=== PATIENT | male | born 1965 | race African-American/Black ===

== ENCOUNTER 2016-06-17 15:33 | Inpatient (IN) | payer MEDICARE, OTHER ==
--- NOTE | ~2016-06-17 | OP ---
Record Of Operation [facility] [address] [place]. [address] NAME: WENDY ENNIS : 61 STATUS : ADM IN [facility]#: [id number] AGE: 51 ADM/REG DATE : 06/17/16 MR#: [id number] REPORT SERV DATE: 06/23/16 DICTATED BY: ISRAEL OLEARY DATE: 06/23/16 REPORT STATUS : Draft TRANSCRIBED BY: MODL DATE: 06/23/16 DATE OF PROCEDURE: 06/23/2016 PROCEDURE INDICATION: Atypical flutter. PROCEDURE DESCRIPTION: All questions were answered and informed consent was obtained. Anesthesia administered sedation, without complication. Transesophageal probe was then inserted without any issue. Salient echocardiographic windows were obtained, with particular attention to the left atrial appendage. Subsequently, the patient was shocked to 200 joules x1, with successful conversion to sinus rhythm in the 80s. The patient tolerated the procedure well without any complications. ECHOCARDIOGRAPHIC FINDINGS: 1. Moderately decreased left ventricular systolic function, with an estimated ejection fraction of 35% to 40%. 2. Moderately enlarged right ventricle with moderately decreased systolic function. 3. Biatrial enlargement. 4. No thrombus in the left atrial appendage at the time of the study. 5. Color Doppler demonstrates severe tricuspid and mitral regurgitation. 6. Failure of the tricuspid leaflets to coapt secondary to annular dilatation (RV and RA enlargement). 7. The mitral valve is not well seen but appears to be thickened, and possibly with mild coaptation. Pulmonary systolic vein flow reversal was noted, in keeping with severe MR. 8. Small circumferential pericardial effusion is noted. 9. No evidence of PFO or ASD on color Doppler assessment of the interatrial septum. VR/BONNIE Israel Oleary MD / [id number] CC: Jono Valentine M.D.
--- NOTE | ~2016-06-17 | CN ---
Consultation Report [facility] [address] [facility] [place]. [address] NAME: WENDY GALAVIZ : 61 STATUS : ADM IN [facility]#: [id number] AGE: 51 ADM/REG DATE : 06/17/16 MR#: [id number] REPORT SERV DATE: 06/18/16 DICTATED BY: JOHN FERRARI DATE: 06/18/16 REPORT STATUS : Draft TRANSCRIBED BY: MODL DATE: 06/18/16 INPATIENT CONSULTATION DATE OF CONSULTATION: 06/18/2016 REASON FOR CONSULTATION: Ascites and question need for paracentesis. HISTORY OF PRESENT ILLNESS: Mr. Galaviz is a very pleasant 51-year-old male with past medical history most significant for end-stage renal disease, on hemodialysis three days a week as well as congestive heart failure and atrial fibrillation, who was admitted to the hospital on the day prior to this consultation for complaints of chronic cough and shortness of breath and was found to be in rapid atrial fibrillation. The patient was also complaining of chest pain at that time and has had negative troponins to this point. The patient has history of recurrent episodes of ascites. The patient states that, he has had recurrent problems for some time with a recent paracentesis for fluid removal approximately one week ago on 06/09/2016. No labs were sent on the fluid, but 3 L of ascites fluid removed. Review of the patient's laboratory work for prior paracentesis revealed fluid with a SAAG of 1.1 with a high albumin and high protein consistent with cardiac ascites. Currently, the patient states that his abdomen feels full, but is not having any pain. Examination of the patient's abdomen reveals a soft abdomen with only mild distention. No nausea or vomiting per the patient's report. No food intolerance. REVIEW OF SYSTEMS: All systems reviewed and were negative aside from what was mentioned in the history of present illness. PAST MEDICAL HISTORY: 1. End-stage renal disease with hemodialysis on Thursday, Thursday, and Thursday. 2. Hypertension. 3. Nonischemic cardiomyopathy. 4. Paroxysmal atrial fibrillation, on Coumadin. 5. Recurrent ascites with recent paracentesis one week ago. 6. History of recurrent pleural effusions, with prior VATS procedure in 2014. FAMILY HISTORY: The patient denies any family history of GI related malignancy or liver disease. SOCIAL HISTORY: The patient denies tobacco, alcohol, or illicit drug use. ALLERGIES: THE PATIENT HAS ALLERGIES TO: 1. VANCOMYCIN. 2. IODINATED CONTRAST MEDIA. Consultation Report [address] [place]. [address] NAME: WENDY GALAVIZ : 61 STATUS : ADM IN PAT#: [id number] AGE: 51 ADM/REG DATE : 06/17/16 MR#: [id number] REPORT SERV DATE: 06/18/16 DICTATED BY: JOHN FERRARI DATE: 06/18/16 REPORT STATUS : Draft TRANSCRIBED BY: BONNIE DATE: 06/18/16 3. PENICILLINS. 4. SHELLFISH. 5. TOMATOES. 6. STRAWBERRIES. 7. MUSHROOMS. OUTPATIENT MEDICATIONS: 1. Breo Ellipta. 2. Albuterol. 3. Amlodipine. 4. Elavil. 5. Coumadin. PHYSICAL EXAMINATION: VITAL SIGNS: Most recent vital signs include a temperature of 98.1, pulse of 90, blood pressure is 98/66, saturating 93% on room air. GENERAL INSPECTION: Reveals a middle-aged male, lying in bed, in no apparent distress. HEENT: Head is normocephalic, atraumatic with normal inspection of the oral mucosa. Sclerae nonicteric. Pupils are equal and round. HEART: Rate is irregular with normal S1 and S2. LUNGS: Sounds clear to auscultation from the anterior aspect. ABDOMEN: Soft, nontender with mild distention. There is a fluid wave that is palpable. No masses were appreciated. EXTREMITIES: The patient has no cyanosis, clubbing. No jaundice or rash. NEURO: No gross motor deficits. He is alert and oriented. Mood and affect are appropriate. Judgment appears to be intact. LABORATORY DATA: Most recent laboratory results include a comprehensive metabolic panel as most remarkable only for creatinine of 6.33. Electrolytes were unremarkable. Total bilirubin was elevated at 3.9, alkaline phosphatase 197, transaminases were normal however. PTT was elevated at 88. INR was 1.6. Most recent CBC showed a white count of 7.7, hemoglobin of 14.6, and a platelet count of 223,000. The patient has no pertinent imaging to review. ASSESSMENT AND PLAN: Mr. Galaviz is a very pleasant 51-year-old male with past medical history significant for end-stage renal disease as well as congestive heart failure and atrial fibrillation, who was admitted with atrial fibrillation with rapid ventricular response, shortness of breath, and chest pain. The patient does not have significant amount of ascites, the etiology of which is most likely cardiac in nature given the fluid analysis from previously, however the patient does have elevated LFTs at this time, which suggest a cholestatic pattern. Question if this is from hepatic congestion from the patient's heart failure/rapid atrial fibrillation, which may also be exacerbating the development of Consultation Report [address] [address] NAME: WENDY GALAVIZ : 61 STATUS : ADM IN PAT#: [id number] AGE: 51 ADM/REG DATE : 06/17/16 MR#: [id number] REPORT SERV DATE: 06/18/16 DICTATED BY: JOHN FERRARI DATE: 06/18/16 REPORT STATUS : Draft TRANSCRIBED BY: MODL DATE: 06/18/16 ascites. For the patient's ascites, he will require ongoing fluid balancing during dialysis as diuretic therapy is unlikely to be of significant benefit for him with his significantly decreased urine production. However, intermittent paracenteses can be performed as needed, when the patient becomes overtly distended. The patient does not have significant distention at this point in time. I would not recommend paracentesis today, however would recommend an ultrasound of the patient's liver to assure there is no suggestion of biliary obstruction. The patient does have an elevated bilirubin and alkaline phosphatase. Again, this could be secondary to hepatic congestion from the patient's heart disease, however would rule out an obstructive process. 1. Would obtain right upper quadrant ultrasound for assessment of the patient's liver and bile ducts today. 2. Would check a hepatitis panel. 3. No need for paracentesis at this time. Thank you very much for this interesting consult and allowing us to participate in Mr. Galaviz's care. Please call with questions or concerns. WMC/MODL John Ferrari MD / [id number] CC: Jono Valentine M.D.
--- NOTE | ~2016-06-17 | CN ---
Consultation Report [facility] [address] [place]. [address] NAME: WENDY ENNIS : 61 STATUS : ADM IN PAT#: [id number] AGE: 51 ADM/REG DATE : 06/17/16 MR#: [id number] REPORT SERV DATE: 06/18/16 DICTATED BY: RITU WONG DATE: 06/18/16 REPORT STATUS : Draft TRANSCRIBED BY: BONNIE DATE: 06/18/16 CARDIOLOGY CONSULTATION DATE OF CONSULTATION: REFERRING REASON: Atrial fibrillation with rapid ventricular response and dry cough. HISTORY OF PRESENT ILLNESS: This is a 51-year-old gentleman with a complex past medical history and unfortunately also poor medical compliance, well known to me from [facility]. He has several recent hospitalizations at [facility]. He has end-stage renal disease, on hemodialysis. He has required frequent paracentesis for ascites, most recent one was on 06/09/2016, 3 L fluid was removed. He also has a history of right pleural VATS by Dr. Quick in 2014 for recurrent pleural effusion. He has a nonischemic cardiomyopathy with EF 45% to 50%. He has several echocardiograms, more recent one was transesophageal echo in 04/2016 with EF 50%. He has history of atrial flutter ablation in [address] Gonsales and then paroxysmal atrial fibrillation since then. Unfortunately, he has very poor medical compliance, and he stopped all the medications including anticoagulation for a couple of years. When I saw him in April, he was not on anticoagulation. Anticoagulation has been restarted, and he underwent REY-guided cardioversion. During the transesophageal echo done by Dr. Pineda, the patient had a respiratory arrest and required intubation. Subsequently, he underwent successful REY- guided cardioversion by Dr. Giron during the same hospitalization in April to sinus rhythm, he was started on intravenous amiodarone and despite these measures, he went shortly after to atrial fibrillation. I saw him in the office on 05/08. At that time, he has a subtherapeutic INR of 1.3 and was in atrial fibrillation, but it was rate controlled. He was on p.o. amiodarone and Toprol. He is a very poor historian. He has been complaining for last couple of weeks of a dry cough and that he is not sure what is happening with the medications, including amiodarone and Toprol. He reportedly has been seen by human resources operations specialist in the outpatient office yesterday or the day before yesterday and was found to have atrial fibrillation with rapid ventricular response of more than 100 and was sent to emergency room and admitted to Nephrology Service. He was started on Cardizem drip yesterday, and the Coumadin has been restarted. Of note, the patient has been offered to have INR followed at the Cou[facility]in [facility] at [facility], but he declined it. He wanted to have INR checked during the hemodialysis. He denies any significant palpitations. He has some episodes of chills, but no fevers. His blood pressure during hemodialysis is unknown to me. He has also intermittent, poorly defined, nonexertional chest discomfort. Of note, he has some mild troponin leak, 0.07 to 0.09, which is chronic, which was during the last hospitalization in April. His coronary arteriogram, however, has not revealed any obstructive disease. He has some multiple dry coughing spells now during the examination. He is not sure what is happening with the amiodarone or anticoagulation. He is a very poor historian. REVIEW OF SYSTEMS: Consultation Report [address] [address] NAME: WENDY ENNIS : 61 STATUS : ADM IN [facility]#: [id number] AGE: 51 ADM/REG DATE : 06/17/16 MR#: [id number] REPORT SERV DATE: 06/18/16 DICTATED BY: RITU WONG DATE: 06/18/16 REPORT STATUS : Draft TRANSCRIBED BY: MODTiana DATE: 06/18/16 The rest of review of systems is negative. PAST MEDICAL HISTORY: 1. End-stage renal disease, on hemodialysis. 2. Recurrent ascites, requiring paracentesis, most recent one on 06/09/2016. 3. Recurrent pleural effusion with history of right VATS with small right pleural effusion now. 4. Nonischemic cardiomyopathy with EF 45% to 50%, most recent echo in 04/2016 with EF 50%. 5. Mild RV enlargement with moderate TR and mild left atrial enlargement by echocardiogram. 6. Mild troponin leak, chronic. 7. No obstructive CAD by arteriogram in 04/2016. 8. Longstanding hypertension. 9. History of atrial flutter ablation by Dr. Gonsales in 2013. 10.Status post REY-guided cardioversion in 2013 and 04/2016, but the patient went back to atrial fibrillation despite amiodarone. 11.History of respiratory arrest during transesophageal echo in 04/2016. 12.History of right cheek MRSA in 04/2016. 13.Chronic cough with some recent worsening. 14.History of negative nuclear cardiac stress test for ischemia in 2014. 15.Poor medical compliance. ALLERGIES: PENICILLIN. SOCIAL HISTORY: The patient lives independently. He does not work. He is on dialysis. Denies smoking or drinking alcohol. FAMILY HISTORY: Negative for sudden cardiac or premature coronary artery disease in the family. HOME MEDICATIONS: Prior to admission, he was on amiodarone 200 mg once a day, but on admission medications, it is not listed; amlodipine 5 mg once a day; aspirin 81 mg once a day; clonidine 0.3 mg every 24 hours; Lasix 60 mg a day; Jantoven; during the last visit on 05/08, we increased dose of Coumadin to 10 mg once a day, the patient is not sure how much he was taking at home and it is not listed on admission medications; Toprol-XL 25 mg once a day, it is not again listed. He is now on Cardizem drip, and Coumadin has been restarted. PHYSICAL EXAMINATION: GEN: No acute distress, chronically ill-looking gentleman, who looks older than his biological age with some multiple dry coughing spells during the examination. HEENT: Pupils reactive to light and accommodation. Moist mucosa membrane. NECK: No JVD. Normal carotid upstroke. No carotid bruits. LUNGS: Decreased breath sounds bibasilarly with some decreased breath sounds particularly at the right base. Occasional wheezing, but no crackles. COR: Normal S1, S2. No S3 or S4. No significant rub or murmurs. Consultation Report [address] [place]. [address] NAME: WENDY ENNIS : 61 STATUS : ADM IN [facility]#: [id number] AGE: 51 ADM/REG DATE : 06/17/16 MR#: [id number] REPORT SERV DATE: 06/18/16 DICTATED BY: RITU WONG DATE: 06/18/16 REPORT STATUS : Draft TRANSCRIBED BY: BONNIE DATE: 06/18/16 ABDOMEN: Distended and nontender. EXT: Lower extremity, decreased pedal pulses bilaterally, but no edema. SKIN: Warm with normal turgor. MS: No kyphosis. NEURO/PSY: Alert and oriented. Nonfocal. VITAL SIGNS: The blood pressure is 98/66. LABORATORY DATA: INR 1.5. Creatinine 8.0, BUN 29. Chest x-ray shows some borderline cardiomegaly with right pleural effusion. Troponin 0.07, 0.07. CBC, within normal limits. On monitor, he is in atrial fibrillation in the 90s. ASSESSMENT AND PLAN: 1. Worsening chronic dry cough of unclear etiology with recent chills. 2. Persistent atrial fibrillation, status post REY-guided cardioversion in 04/2016. 3. Nonischemic cardiomyopathy with EF 45% to 50%. 4. Chronic mild troponin leak with no evidence of any significant CAD by arteriogram in 04/2016. 5. End-stage renal disease, on hemodialysis. 6. Problem with medical compliance. The patient has several medical problems and unfortunately, his medical compliance is very poor. Definity, he will need to be on chronic anticoagulation. While he repeatedly strongly declined to have INR checked at [facility] and wants to have it done in dialysis, we will need to defer this to our nephrology colleagues. Pharmacy should manage his Coumadin while in the hospital. While his blood pressure has been low, we will restart him on intravenous amiodarone and use IV Cardizem only p.r.n. While he is not on admission on amiodarone is not clear to me, the patient does not have any explanation for it. He is not a good candidate for another REY-guided cardioversion while he had a respiratory arrest just two months ago. He will rather need to be followed by human resources operations specialist for his worsening dry cough. He even does not remember whom he sees in the outpatient setting from Pulmonary. His INR now is clearly subtherapeutic. His mild troponin leak likely does not represent acute coronary syndrome while he has chronic troponin leak with recent coronary arteriogram. We will follow the patient with you. Our goal will be rate control. PHOEBE/BONNIE Ritu Wong M.D. / [id number] CC: Jono Valentine M.D.
--- NOTE | ~2016-06-17 | DS ---
Discharge Summary [facility] [address] [facility] [place]. [address] NAME: WENDY ENNIS : 61 STATUS : DIS IN PAT#: [id number] AGE: 51 ADM/REG DATE : 06/17/16 MR#: [id number] REPORT SERV DATE: 06/25/16 DICTATED BY: JR SKY JR DATE: 06/24/16 REPORT STATUS : Draft TRANSCRIBED BY: BONNIE DATE: 06/24/16 ADMISSION DATE: 06/17/2016 DISCHARGE DATE: 06/24/2016 MOTOR TRANSPORT INSPECTOR: Chidi Waldrop M.D. REASON FOR ADMISSION: Atrial fibrillation with rapid ventricular response. HISTORY: The patient was seen on a scheduled office visit the day of admission, by his plastic card grader cardroom, he was identified to be in atrial fibrillation with rapid ventricular response. He was admitted, underwent cardioversion on two occasions, with subsequent stabilization of the heart rate in a sinus rhythm. He was treated with warfarin, INR is therapeutic, warfarin has been managed by the hospital pharmacist, and it is stated that he has had warfarin re-education during this hospitalization. He underwent his usual dialysis sessions without incident. There was no indication for adjustment of his dry weight, and hence this number is not changed as he is leaving the hospital. On day of dismissal, he denies any new complaints. He acknowledges that he understands how to use his warfarin and that he is aware of what foods may interfere with warfarin. I have educated him to always ask if a new prescription medication can interfere with his warfarin metabolism. PHYSICAL EXAMINATION: VITAL SIGNS: At dismissal, the temperature is 98.7, heart rate 84, respirations 16, BP 100/68. GENERAL: He is awake, alert, and oriented. SKIN: Warm and dry. There is no diaphoresis or cyanosis. NECK: There is no jugular venous distention of the neck. LUNGS: Clear without increased work of breathing. HEART: Tones are regular without rub or gallop. ABDOMEN: Nontender. EXTREMITIES: Without edema. LABORATORY DATA: White count is 5000, hemoglobin is 13, platelets 162. INR is 2.0. PT is 22. Sodium is 139, potassium 4.3, chloride 102, CO2 is 22, BUN is 42, creatinine 8.6, nonfasting glucose is 115, calcium is 8.8, magnesium is 2.2, albumin 3.0. Chest x-ray on day of admission showed stable cardiomegaly with left atrial enlargement and enlargement of the pulmonary artery centrally. Small nonspecific pleural effusion on the right, otherwise unremarkable. ADDITIONAL DISMISSAL: Improved. FOLLOWUP: With art sales consultant at [facility] as directed by the art sales consultant. Followup at [facility] for therapeutic warfarin monitoring. Follow with his plastic card grader cardroom, he will need to call for an appointment. Follow up at [facility] tomorrow on usual schedule with no Discharge Summary [address] [place]. [address] NAME: WENDY ENNIS : 61 STATUS : DIS IN PAT#: [id number] AGE: 51 ADM/REG DATE : 06/17/16 MR#: [id number] REPORT SERV DATE: 06/25/16 DICTATED BY: JR SKY JR DATE: 06/24/16 REPORT STATUS : Draft TRANSCRIBED BY: BONNIE DATE: 06/24/16 adjustment in his dry weight. DF/MODL Jr Sky Jr, M.D. / [id number] CC: Meenu Raines Jr, M.D. [facility]
--- NOTE | ~2016-06-17 | CN ---
Consultation Report [facility] [address] [place]. [address] NAME: WENDY GALAVIZ : 61 STATUS : ADM IN PAT#: [id number] AGE: 51 ADM/REG DATE : 06/17/16 MR#: [id number] REPORT SERV DATE: 06/18/16 DICTATED BY: RODO PATE DATE: 06/18/16 REPORT STATUS : Draft TRANSCRIBED BY: BONNIE DATE: 06/18/16 DATE OF CONSULTATION: 06/18/2016 CHIEF COMPLAINT: Cough and right-sided pleural effusion. HISTORY OF PRESENT ILLNESS: Mr. Wendy Galaviz is a 51-year-old male with a past medical history significant for end-stage renal disease on dialysis Thursday, Thursday, Thursday; chronic cough; atrial fibrillation; and previous pleural effusion; who presents to [facility] with complaints of symptoms related to arrhythmia. It should be noted that the patient was hospitalized as recently as two months ago when he underwent cardioversion. It should be noted that during this hospitalization he did have respiratory arrest and required intubation. Mr. Galaviz is very familiar to our Pulmonary Service and has been seen by several members of our Pulmonary team. He has an ongoing workup for his chronic cough, unfortunately he has not presented to our office for continuing workup. He does not usually require supplemental oxygen. He is on a pulmonary regimen of Singulair and Flovent. He has recently been taking Breo Ellipta. He describes himself as a never smoker. He largely denies symptomatology related to obstructive sleep apnea. He describes his exercise tolerance as being somewhat limited. That being said, he is able to walk approximately half a block before experiencing some degree of shortness of breath. Again, the patient was seen in April of this year by our pulmonary team. Apparently, he was undergoing a cardioversion, had a vagal response which induced respiratory failure. The patient was briefly intubated. He did improve and did eventually transition home. More recently, he has had worsening issues with heart rate as well as persistent dry cough which prompted his presentation to [facility] Emergency Room. Upon arrival, he was found to be in atrial fibrillation with rapid ventricular response. During this time, he has also had ascites for which he underwent paracentesis. Approximately 3 L of fluid was removed from his abdomen. He has had recent chest x-ray which demonstrates a very small right-sided pleural effusion. For the aforementioned reasons, he has been referred to the Pulmonary Service for further assessment. Mr. Galaviz's main pulmonary complaint is a dry nonproductive cough. He is on minimal oxygen. He denies any wheezing. The patient does have an extensive cardiac history and is followed by Dr. Waldrop for these concerns. He currently denies any murmurs, angina, or palpitations. In regard to constitutional symptoms, he currently denies fever, chills, nausea, vomiting, chest pain, abdominal pain, or edema. PAST MEDICAL HISTORY: 1. End-stage renal disease. 2. Atrial fibrillation. Consultation Report [address] [address] NAME: WENDY GALAVIZ : 61 STATUS : ADM IN [facility]#: [id number] AGE: 51 ADM/REG DATE : 06/17/16 MR#: [id number] REPORT SERV DATE: 06/18/16 DICTATED BY: RODO PATE DATE: 06/18/16 REPORT STATUS : Draft TRANSCRIBED BY: BONNIE DATE: 06/18/16 3. Hypertension. 4. Ascites. 5. Gastroesophageal reflux disease. 6. Mitral regurgitation. PAST SURGICAL HISTORY: 1. Fistula placement. 2. Parathyroidectomy. 3. Paracentesis. 4. Cholecystectomy. 5. Talc pleurodesis. 6. Thoracentesis. FAMILY HISTORY: The patient states his mother has end-stage renal disease. He denies any lung disease in the family. SOCIAL HISTORY: The patient is single. 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 He worked at this job for approximately 45 years, but does not feel he had excessive exposures to airborne particles. He denies any known exposures to dust, silica, or asbestos. TOBACCO/ALCOHOL: As previously mentioned, the patient describes himself as a never smoker. He denies any recent alcohol or illicit drug use. MEDICATIONS: Breo Ellipta, albuterol, amlodipine, amitriptyline, warfarin 10 mg. ALLERGIES: THE PATIENT HAS ALLERGY TO CONTRAST MEDIA, PENICILLIN, SHELLFISH, TOMATO, STRAWBERRY, AND MUSHROOM. REVIEW OF SYSTEMS: Complete review of systems was performed with the pertinent positives and negatives contained within the body of the HPI. PHYSICAL EXAMINATION: VITAL SIGNS: Blood pressure is 103/71, heart rate is 90, T-max 98.1, respiratory rate is 20, SpO2 is 100% on room air. GENERAL: The patient is a pleasant, well-nourished/well-developed male who is not currently exhibiting any signs of acute distress. SKIN: Skin with appropriate texture and turgor. No rashes, lesions, or ulcers. Nails are clear without cyanosis or clubbing. HEENT: Head: Skull is normocephalic/atraumatic. Facies symmetric. No masses or lesions. Eyes: Sclera anicteric, conjunctiva pink without exudates. Extraocular movements intact. Pupils are equal, round, reactive to light. Ears: Auricles and tragus without pain to palpation. Hearing is grossly intact. Nose: Bilateral nasal patency. Sinuses without tenderness upon palpation. Throat: Dentition. Lips, oral mucosa, tongue, palate, and Consultation Report [address] [place]. [address] NAME: WENDY GALAVIZ : 61 STATUS : ADM IN [facility]#: [id number] AGE: 51 ADM/REG DATE : 06/17/16 MR#: [id number] REPORT SERV DATE: 06/18/16 DICTATED BY: RODO PATE DATE: 06/18/16 REPORT STATUS : Draft TRANSCRIBED BY: BONNIE DATE: 06/18/16 pharynx pink and moist without lesions. Uvula rises equally on phonation. Tongue midline without deviation. NECK: Neck supple. Trachea midline. No cervical lymphadenopathy appreciated. THORAX/LUNGS: Thorax is symmetric with equal chest rise. Breath sounds audible through entire field. No rales, wheezes, rhonchi. CARDIOVASCULAR: Irregular rhythm. No murmurs, rubs, or gallops. Anterior chest without thrills, heaves, or lifts. ABDOMEN: Soft. Mildly distended, nontender. Active bowel sounds in all four quadrants. No hepatosplenomegaly noted. PERIPHERAL VASCULAR: No edema. No varicosities, stasis changes, open sores, ulcerations, or phlebitis. 2+ pulses in radial and dorsalis pedis. MUSCULOSKELETAL: Full AROM and PROM in all joints. No evidence of erythema, deformity, or crepitus. NEUROLOGIC: CN 2 through 12 grossly intact. Good muscle bulk and tone bilaterally. Strength 5/5 throughout. PSYCHIATRIC: The patient demonstrates good judgment and insight. The patient is A and O x3. Accessory data reveals creatinine 6.33. Troponin is 0.07 x3. White blood cell count is 7700. PA and lateral reveals cardiomegaly and a small right pleural effusion. IMPRESSION: 1. End-stage renal disease on dialysis Thursday, Thursday, and Thursday. 2. Atrial fibrillation with rapid ventricular response. 3. Nonischemic cardiomyopathy with an ejection fraction of 45-50%. 4. Recurrent ascites. 5. Small right-sided pleural effusion. 6. Chronic cough. PLAN: 1. At this time, the patient is currently on the nephrology service. 2. Cardiology is following the patient in regard to his arrhythmia. 3. In regard to the patient's recent ascites, the GI service is following with several imaging studies pending. 4. In regard to the patient's small right-sided pleural effusion, this is likely secondary to translocation of fluid across the diaphragm. We have no immediate plans for thoracentesis or surgical intervention. 5. In regard to the patient's chronic cough, again this has been an ongoing workup with the patient. He has been treated in the past for symptoms related to upper airway cough syndrome, asthma, gastroesophageal reflux disease, post infectious process, as well as an extensive look at his medications. He has been treated as if he has a neurogenic cough in the past with persistent cough symptoms. Realistically, there are limited options remaining in treating this patient's persistent cough. The patient does have complaints of inability to sleep secondary to his cough, as such we will provide him with a cough elixir at hour of sleep. Consultation Report [address] [place]. [address] NAME: WENDY GALAVIZ : 61 STATUS : ADM IN PAT#: [id number] AGE: 51 ADM/REG DATE : 06/17/16 MR#: [id number] REPORT SERV DATE: 06/18/16 DICTATED BY: RODO PATE DATE: 06/18/16 REPORT STATUS : Draft TRANSCRIBED BY: MODL DATE: 06/18/16 The aforementioned impression and plan has been discussed with Dr. Quiroz, who will follow further recommendations. We thank you for this consult and look forward to participating in the care of Mr. Wendy Galaviz. GBS/MODL Rodo Pate PA-C / [id number] CC: Jono Valentine M.D.
--- NOTE | ~2016-06-17 | HP ---
History And Physical [id number] [place]. [address] NAME: WENDY ENNIS : 61 STATUS : ADM IN PAT#: [id number] AGE: 51 ADM/REG DATE : 06/17/16 MR#: [id number] REPORT SERV DATE: 06/18/16 DICTATED BY: RANDY CALDERON DATE: 06/17/16 REPORT STATUS : Draft TRANSCRIBED BY: MODTiana DATE: 06/17/16 DATE OF ADMISSION: 06/17/2016 RENAL H AND P CHIEF COMPLAINT: Regarding tachycardia and chest pain. BRIEF HISTORY OF PRESENT ILLNESS: A 51-year-old black male with end-stage renal disease, D[facility] [place], Thursday, Thursday, Thursday, left forearm AV fistula for the past 10 years, hypertension, nonischemic cardiomyopathy, ejection fraction of 50% with a history of paroxysmal atrial fibrillation, sent from Pulmonary office where he was currently being evaluated for his underlying chronic cough and chronic shortness of breath. He presented to the ER with AFib with RVR. Initial cardiac markers are negative with a troponin of 0.07. The patient was given Cardizem with subsequent chest pain in the ER, and subsequently was admitted for further evaluation and management of chest pain and AFib with RVR. INR noted to be subtherapeutic at 1.5 on Coumadin therapy at home. The patient with additional history of recent right cheek MRSA, history of chronic bronchitis, recurrent ascites with recent paracentesis on 06/09/2016. The patient denies any nausea, vomiting, abdominal pain. He states the chest pain does get worse with his cough. We are called for further evaluation and management of above mentioned issues. PAST MEDICAL HISTORY: 1. End-stage renal disease, hemodialysis on Thursday, Thursday, Thursday, [facility] [place] left forearm AV fistula. 2. Hypertension. 3. Nonischemic cardiomyopathy. Ejection fraction 50%. 4. Paroxysmal atrial fibrillation with a history of REY cardioversion in April 2016, associated with cardiac arrest. 5. Right cheek MRSA in 04/2016. 6. Paroxysmal atrial fibrillation, status post REY cardioversion, associated with cardiac arrest 04/18/2016. 7. Recurrent ascites, most recent paracentesis on 06/09/2016. 8. Chronic cough. 9. History of right pleural effusion with right VATS procedure by Dr. Zain Quick in June 2014. MEDICATIONS ON ADMISSION: 1. Albuterol MDI two puffs p.r.n. 2. Elavil 40 mg at bedtime. 3. Amlodipine 5 mg daily. 4. Breo Ellipta one puff every morning. 5. Chloraseptic spray as needed. 6. Coumadin 10 mg p.o. at bedtime. ALLERGIES: ALLERGIES ARE MULTIPLE AND INCLUDE VANCOMYCIN CAUSES HIVES, IODINATED CONTRAST MEDIA HIVES, PENICILLIN HIVES, SHELLFISH FACIAL SWELLING AND HIVES, TOMATO HIVES, STRAWBERRY History And Physical [address] [address] NAME: WENDY ENNIS : 61 STATUS : ADM IN [facility]#: [id number] AGE: 51 ADM/REG DATE : 06/17/16 MR#: [id number] REPORT SERV DATE: 06/18/16 DICTATED BY: RANDY CALDERON DATE: 06/17/16 REPORT STATUS : Draft TRANSCRIBED BY: BONNIE DATE: 06/17/16 HIVES, MUSHROOM HIVES AND FACIAL SWELLING. SOCIAL HISTORY: Denies tobacco, alcohol, or illicit drug use. FAMILY HISTORY: No history of renal disease. REVIEW OF SYSTEMS: Negative except as mentioned in HPI. PHYSICAL EXAMINATION: VITAL SIGNS: Temperature 97.2, blood pressure 130/80, pulse is 138, and respiratory rate is 16. GENERAL: A well-developed, acutely ill-appearing black male, in no acute distress. HEENT: Normocephalic and atraumatic. Pupils are equal, round, and reactive to light. Mucous membranes are moist. NECK: Supple. No thyromegaly. CARDIOVASCULAR: Irregularly regular and tachycardic. Normal S1, S2. No murmurs. RESPIRATORY: Decreased breath sounds at bases bilaterally with a few scattered rhonchi. Normal respiratory effort. ABDOMEN: Distended. No tenderness to palpation. No guarding. No rebound. No organomegaly. EXTREMITIES: No clubbing, cyanosis, or edema. Left forearm AV fistula. Positive bruit and thrill. SKIN: No rashes or ulcerations. NEURO: Moves all extremities well. No focal deficits. Normal sensation in all extremities. PSYCH: Oriented x3 with flat affect. LABORATORY DATA: Sodium 137, potassium 3.7, chloride 94, bicarb 29, BUN is 29, creatinine 8.05, glucose is 82, calcium is 10.2, and magnesium 2.3. White count is 7.7, hemoglobin is 14.6, platelet count is 223, and INR 1.5. Troponin 0.07. Chest x-ray, cardiomegaly with small right pleural effusion. ASSESSMENT/PLAN: 1. End-stage renal disease, hemodialysis on Thursday, Thursday, and Thursday. Plan for hemodialysis on Thursday, protect access. 2. Atrial fibrillation with rapid ventricular response. History of REY cardioversion attempt, associated with cardiac arrest. Plan to consult Cardiology. Resume Coumadin. Bridge therapeutic INR with heparin drip. Defer further anticoagulation to [facility]. Check cardiac markers q.8 hours x2 given chest pain, continue diltiazem drip. We will check blood cultures x2. 3. Positive chest pain with an ejection fraction of 50%, nonischemic cardiomyopathy. Check cardiac markers q.8 hours x2 and consult Cardiology. 4. Hypertension. Resume home medications. History And Physical [address] [address] NAME: WENDY ENNIS : 61 STATUS : ADM IN [facility]#: [id number] AGE: 51 ADM/REG DATE : 06/17/16 MR#: [id number] REPORT SERV DATE: 06/18/16 DICTATED BY: RANDY CALDERON. DATE: 06/17/16 REPORT STATUS : Draft TRANSCRIBED BY: MODL DATE: 06/17/16 5. Recurrent ascites. Consult GI for questionable need for repeat paracentesis, most recently performed on 06/09/2016. 6. Prophylaxis. Heparin drip and Coumadin. NCP/MODL Randy Calderon M.D. / [id number] CC: Jono Valentine M.D.
[~2016-06-17 15:33] MED LIST: ADALAT CC90 MG PO; ALBUTEROL 0.083% INH; ASAB PO; BREO ELLIPTA 21 EACH INH; C1 PO; C5; C5 PO; CALTRA600D PO; CATAPRES2 TOP; CHLORASEPTIC SPRAY MT; CLONIDINE PO; CLONIDINE TOP; CORDARONE PO; COUMADIN4 MG PO; COUMADIN7.5 MG PO; DURACLON EP; FERRLECIT IV; FLOVENT110 INH; FOLIC PO; GGACUDL PO; HALF81 PO; HALL'S COUGH DROPS PO; HALLS COUGH DROPS PO; HCTZ25B PO; HYDROCHLOROT25 MG PO; JANTOVEN7.5 MG PO; L20 PO; L40 PO; LONITEN10 PO; LOP100 PO; LOP50 PO; MIRALAX POWDER1 PKT PO; MIRALAXPKT PO; MONODOX100 MG PO; NIFEDIAC CC90 MG PO; NORV25 PO; NORV5 PO; NXL9 PO; PACERONE200 MG PO; PCET PO; PHOSLO PO; PRILO PO; PRIN10 PO; PROTONIX PO; ROCALTROL0.5 MCG PO; SINGULAIR1 PO; SODBICAR10 PO; TOPXL25 PO; TRANDAT100 PO; TRIPHROCAPS PO; TUMS 500MG PO; TUMS PO; TUMSROLL PO; VENTOLIN HFA INH; VITAMIN B PO; VITC500 PO
[2016-06-17 16:07] LABS: BASOPHILS 0.7 %; BASOPHILS ABSOLUTE 0.05 10/3/uL (0.0-0.16); EOSINOPHILS 2.7 %; EOSINOPHILS ABSOLUTE 0.21 10/3/uL (0.0-0.53); ER CBC TAT 0 Hrs 09 Mins; HEMATOCRIT 42.9 % (40.0-51.0); HEMOGLOBIN 14.6 g/dL (13.6-17.8); IMMATURE GRANULOCYTES 0.3 %; IMMATURE GRANULOCYTES ABSOLUTE 0.02 10/3/uL (0.0-0.11); LYMPHOCYTES 24.4 %; LYMPHOCYTES ABSOLUTE 1.87 10/3/uL (0.67-4.30); MANUAL DIFF NO %; MEAN CORPUSCULAR HEMOGLOB 32.7 pg (26.0-34.0); MEAN PLATELET VOLUME 10.5 fL (9.2-13.0); MONOCYTES 12.3 %; MONOCYTES ABSOLUTE 0.94 10/3/uL (0.21-1.20); NEUTROPHILS 59.6 %; NEUTROPHILS ABSOLUTE 4.56 10/3/uL (2.02-8.40); NUCLEATED RED BLOOD CELLS 0.8 /100WBC (0-0); PLATELET COUNT 223 10/3/uL (150-400); RBC DISTRIBUTION WIDTH 20.1 % (12.0-16.0); RED CELL COUNT 4.47 10/6/uL (4.7-6.1); WHITE BLOOD CELLS 7.7 10/3/uL (4.5-10.5)
[2016-06-17 16:11] LABS: INTERNATIONAL NORMAL RATI 1.5 UNITS (-); PARTIAL THROMBO TIME 32.5 SEC (22.5-37.2)
[2016-06-17 16:19] LABS: CHLORIDE, SERUM 94 MMOL/L (96-112); GLUCOSE, SERUM 82 MG/DL (60-99); SODIUM, SERUM 137 MMOL/L (135-148)
[2016-06-17 16:20] LABS: BUN (BLOOD UREA NITROGEN) 29 MG/DL (6-23); CALCIUM, SERUM 10.2 MG/DL (8.5-10.4); CO2 (CARBON DIOXIDE) 29 MMOL/L (24-34); CREATININE 8.05 MG/DL (0.70-1.30); GFR AFRICAN AMERICAN 8 ML/MIN (>=60); GFR NON AFRICAN AMERICAN 7 ML/MIN (>=60); POTASSIUM, SERUM 3.7 MMOL/L (3.5-5.3)
[2016-06-17 16:23] LABS: CHEST PAIN PROFILE TAT 0 Hrs 25 Mins; TROPONIN I 0.07 NG/ML (<0.05)
[2016-06-17 16:27] LABS: PROTIME (NOT ORD) 17.8 SEC (12.0-14.5)
[2016-06-17] MEDS ORDERED: VENTOLIN HFA INH (20:31)
[2016-06-17] MEDS ORDERED: BREO ELLIPTA 21 EACH INH (20:31)
[2016-06-17] MEDS ORDERED: AMIT10 PO (20:32)
[2016-06-17] MEDS ORDERED: NORV5 PO (20:32)
[2016-06-17] MEDS ORDERED: COUMADIN10 MG PO (20:33)
[2016-06-17] MEDS ORDERED: CHLORASEPTIC SPRAY MT (20:34)
[2016-06-18 01:17] LABS: A/G RATIO 0.8 (0.7-1.9); ALBUMIN 3.1 G/DL (3.5-5.0); BUN (BLOOD UREA NITROGEN) 30 MG/DL (6-23); CALCIUM, SERUM 9.6 MG/DL (8.5-10.4); CHLORIDE, SERUM 94 MMOL/L (96-112); CO2 (CARBON DIOXIDE) 28 MMOL/L (24-34); CREATININE 8.36 MG/DL (0.70-1.30); GFR AFRICAN AMERICAN 8 ML/MIN (>=60); GFR NON AFRICAN AMERICAN 7 ML/MIN (>=60); POTASSIUM, SERUM 3.4 MMOL/L (3.5-5.3); SGOT(AST) 28 U/L (5-40); SGPT(ALT) 20 U/L (5-65); SODIUM, SERUM 138 MMOL/L (135-148); TOTAL PROTEIN 7.1 G/DL (6.0-8.5)
[2016-06-18 01:18] LABS: ALKALINE PHOSPHATASE 203 U/L (45-117); GLUCOSE, SERUM 104 MG/DL (60-99); TOTAL BILIRUBIN 3.8 MG/DL (0-1.2); TROPONIN I 0.07 NG/ML (<0.05)
[2016-06-18 04:45] LABS: INTERNATIONAL NORMAL RATI 1.6 UNITS (-); PROTIME (NOT ORD) 18.8 SEC (12.0-14.5)
[2016-06-18 04:47] LABS: PARTIAL THROMBO TIME 87.4 SEC (22.5-37.2)
[2016-06-18 09:41] LABS: A/G RATIO 0.8 (0.7-1.9); ALKALINE PHOSPHATASE 197 U/L (45-117); CHLORIDE, SERUM 99 MMOL/L (96-112); CO2 (CARBON DIOXIDE) 27 MMOL/L (24-34); GLOBULIN 3.8 G/DL (2.5-4.1); GLUCOSE, SERUM 116 MG/DL (60-99); POTASSIUM, SERUM 3.5 MMOL/L (3.5-5.3); SGOT(AST) 25 U/L (5-40); SGPT(ALT) 19 U/L (5-65); SODIUM, SERUM 139 MMOL/L (135-148); TOTAL BILIRUBIN 3.9 MG/DL (0-1.2); TOTAL PROTEIN 6.8 G/DL (6.0-8.5)
[2016-06-18 09:42] LABS: BUN (BLOOD UREA NITROGEN) 23 MG/DL (6-23); CREATININE 6.33 MG/DL (0.70-1.30); GFR AFRICAN AMERICAN 11 ML/MIN (>=60); GFR NON AFRICAN AMERICAN 9 ML/MIN (>=60); TROPONIN I 0.07 NG/ML (<0.05)
[2016-06-19 07:32] LABS: PROTIME (NOT ORD) 22.7 SEC (12.0-14.5)
[2016-06-19 07:42] LABS: PARTIAL THROMBO TIME > 150.0 SEC (22.5-37.2)
[2016-06-19 10:25] LABS: HEPATITIS B SURFACE ANTIGEN NON-REACTIVE (NON-REACT)
[2016-06-19 10:50] LABS: HEPATITIS C ANTIBODY NON-REACTIVE (NON-REACT)
[2016-06-19 10:51] LABS: HEPATITIS B CORE AB IGM NON-REACTIVE (NON-REAC)
[2016-06-19 10:52] LABS: HEP A ANTIBODY IGM NON-REACTIVE (NON-REACT)
[2016-06-20 08:20] LABS: BASOPHILS 0.2 %; BASOPHILS ABSOLUTE 0.02 10/3/uL (0.0-0.16); EOSINOPHILS 0.6 %; EOSINOPHILS ABSOLUTE 0.06 10/3/uL (0.0-0.53); HEMATOCRIT 38.5 % (40.0-51.0); HEMOGLOBIN 13.6 g/dL (13.6-17.8); IMMATURE GRANULOCYTES 0.2 %; IMMATURE GRANULOCYTES ABSOLUTE 0.02 10/3/uL (0.0-0.11); LYMPHOCYTES ABSOLUTE 1.43 10/3/uL (0.67-4.30); MANUAL DIFF NO %; MEAN CORPUS HGB CONC 35.3 g/dL (32.0-36.0); MEAN CORPUSCULAR HEMOGLOB 32.8 pg (26.0-34.0); MEAN CORPUSCULAR VOLUME 92.8 fL (80-100); MEAN PLATELET VOLUME 10.9 fL (9.2-13.0); MONOCYTES ABSOLUTE 0.71 10/3/uL (0.21-1.20); NEUTROPHILS ABSOLUTE 7.97 10/3/uL (2.02-8.40); PLATELET COUNT 206 10/3/uL (150-400); RBC DISTRIBUTION WIDTH 20.7 % (12.0-16.0); RED CELL COUNT 4.15 10/6/uL (4.7-6.1); WHITE BLOOD CELLS 10.2 10/3/uL (4.5-10.5)
[2016-06-20 08:37] LABS: ALBUMIN 2.8 G/DL (3.5-5.0); CALCIUM, SERUM 9.2 MG/DL (8.5-10.4); CHLORIDE, SERUM 100 MMOL/L (96-112); PHOSPHORUS, SERUM 7.1 MG/DL (2.5-4.5); POTASSIUM, SERUM 4.1 MMOL/L (3.5-5.3); SGOT(AST) 62 U/L (5-40); SGPT(ALT) 39 U/L (5-65); SODIUM, SERUM 136 MMOL/L (135-148); TOTAL PROTEIN 6.4 G/DL (6.0-8.5)
[2016-06-20 08:38] LABS: ALKALINE PHOSPHATASE 183 U/L (45-117); BUN (BLOOD UREA NITROGEN) 31 MG/DL (6-23); CO2 (CARBON DIOXIDE) 19 MMOL/L (24-34); CREATININE 8.12 MG/DL (0.70-1.30); DIRECT BILIRUBIN 1.7 MG/DL (0.0-0.4); GFR AFRICAN AMERICAN 8 ML/MIN (>=60); GFR NON AFRICAN AMERICAN 7 ML/MIN (>=60); GLUCOSE, SERUM 86 MG/DL (60-99); INDIRECT BILIRUBIN(NOT ORDER) 1.1 MG/DL (0.1-0.9); TOTAL BILIRUBIN 2.8 MG/DL (0-1.2)
[2016-06-20 12:18] LABS: INTERNATIONAL NORMAL RATI 3.2 UNITS (-)
[2016-06-20 12:28] LABS: PROTIME (NOT ORD) 32.3 SEC (12.0-14.5)
[2016-06-20 12:29] LABS: PARTIAL THROMBO TIME > 150.0 SEC (22.5-37.2)
[2016-06-21 08:52] LABS: INTERNATIONAL NORMAL RATI 3.5 UNITS (-); PROTIME (NOT ORD) 34.5 SEC (12.0-14.5)
[2016-06-22 05:48] LABS: INTERNATIONAL NORMAL RATI 3.1 UNITS (-)
[2016-06-22 05:57] LABS: BASOPHILS 0.4 %; BASOPHILS ABSOLUTE 0.03 10/3/uL (0.0-0.16); EOSINOPHILS 1.1 %; EOSINOPHILS ABSOLUTE 0.09 10/3/uL (0.0-0.53); HEMOGLOBIN 14.3 g/dL (13.6-17.8); IMMATURE GRANULOCYTES 0.2 %; IMMATURE GRANULOCYTES ABSOLUTE 0.02 10/3/uL (0.0-0.11); LYMPHOCYTES ABSOLUTE 1.16 10/3/uL (0.67-4.30); MEAN CORPUS HGB CONC 33.7 g/dL (32.0-36.0); MEAN CORPUSCULAR HEMOGLOB 32.6 pg (26.0-34.0); MEAN PLATELET VOLUME 10.7 fL (9.2-13.0); MONOCYTES 8.9 %; MONOCYTES ABSOLUTE 0.74 10/3/uL (0.21-1.20); NEUTROPHILS 75.4 %; NEUTROPHILS ABSOLUTE 6.27 10/3/uL (2.02-8.40); NUCLEATED RED BLOOD CELLS 1.1 /100WBC (0-0); PLATELET COUNT 186 10/3/uL (150-400); RBC DISTRIBUTION WIDTH 21.3 % (12.0-16.0); RED CELL COUNT 4.39 10/6/uL (4.7-6.1); WHITE BLOOD CELLS 8.3 10/3/uL (4.5-10.5)
[2016-06-22 05:59] LABS: HEMATOCRIT 42.4 % (40.0-51.0); MANUAL DIFF NO %; MEAN CORPUSCULAR VOLUME 96.6 fL (80-100)
[2016-06-22 06:04] LABS: ALBUMIN 3.1 G/DL (3.5-5.0); CALCIUM, SERUM 9.4 MG/DL (8.5-10.4); CHLORIDE, SERUM 97 MMOL/L (96-112); GFR AFRICAN AMERICAN 7 ML/MIN (>=60); GFR NON AFRICAN AMERICAN 6 ML/MIN (>=60); GLUCOSE, SERUM 79 MG/DL (60-99); PHOSPHORUS, SERUM 6.4 MG/DL (2.5-4.5); SODIUM, SERUM 138 MMOL/L (135-148)
[2016-06-22 06:05] LABS: BUN (BLOOD UREA NITROGEN) 38 MG/DL (6-23); CO2 (CARBON DIOXIDE) 25 MMOL/L (24-34); CREATININE 8.78 MG/DL (0.70-1.30)
[2016-06-23 06:58] LABS: BASOPHILS 0.4 %; BASOPHILS ABSOLUTE 0.03 10/3/uL (0.0-0.16); EOSINOPHILS 1.5 %; EOSINOPHILS ABSOLUTE 0.11 10/3/uL (0.0-0.53); HEMATOCRIT 41.6 % (40.0-51.0); HEMOGLOBIN 14.5 g/dL (13.6-17.8); IMMATURE GRANULOCYTES 0.4 %; IMMATURE GRANULOCYTES ABSOLUTE 0.03 10/3/uL (0.0-0.11); LYMPHOCYTES 21.8 %; LYMPHOCYTES ABSOLUTE 1.57 10/3/uL (0.67-4.30); MEAN CORPUS HGB CONC 34.9 g/dL (32.0-36.0); MEAN CORPUSCULAR HEMOGLOB 33.7 pg (26.0-34.0); MEAN CORPUSCULAR VOLUME 96.7 fL (80-100); MEAN PLATELET VOLUME 10.7 fL (9.2-13.0); MONOCYTES 7.4 %; MONOCYTES ABSOLUTE 0.53 10/3/uL (0.21-1.20); NEUTROPHILS 68.5 %; NEUTROPHILS ABSOLUTE 4.94 10/3/uL (2.02-8.40); PLATELET COUNT 180 10/3/uL (150-400); RBC DISTRIBUTION WIDTH 21.2 % (12.0-16.0); WHITE BLOOD CELLS 7.2 10/3/uL (4.5-10.5)
[2016-06-23 07:00] LABS: MANUAL DIFF NO %
[2016-06-23 07:06] LABS: INTERNATIONAL NORMAL RATI 2.9 UNITS (-); PROTIME (NOT ORD) 29.8 SEC (12.0-14.5)
[2016-06-23 07:21] LABS: ALBUMIN 2.9 G/DL (3.5-5.0); BUN (BLOOD UREA NITROGEN) 50 MG/DL (6-23); CALCIUM, SERUM 9.3 MG/DL (8.5-10.4); CHLORIDE, SERUM 96 MMOL/L (96-112); CO2 (CARBON DIOXIDE) 21 MMOL/L (24-34); CREATININE 9.93 MG/DL (0.70-1.30); GFR AFRICAN AMERICAN 6 ML/MIN (>=60); GFR NON AFRICAN AMERICAN 5 ML/MIN (>=60); GLUCOSE, SERUM 56 MG/DL (60-99); PHOSPHORUS, SERUM 7.3 MG/DL (2.5-4.5); POTASSIUM, SERUM 4.6 MMOL/L (3.5-5.3); SODIUM, SERUM 135 MMOL/L (135-148)
[2016-06-24 07:05] LABS: BASOPHILS 0.5 %; BASOPHILS ABSOLUTE 0.03 10/3/uL (0.0-0.16); EOSINOPHILS 2.5 %; EOSINOPHILS ABSOLUTE 0.14 10/3/uL (0.0-0.53); HEMATOCRIT 40.1 % (40.0-51.0); HEMOGLOBIN 13.7 g/dL (13.6-17.8); IMMATURE GRANULOCYTES 0.4 %; IMMATURE GRANULOCYTES ABSOLUTE 0.02 10/3/uL (0.0-0.11); LYMPHOCYTES 22.3 %; LYMPHOCYTES ABSOLUTE 1.26 10/3/uL (0.67-4.30); MEAN CORPUS HGB CONC 34.2 g/dL (32.0-36.0); MEAN CORPUSCULAR HEMOGLOB 32.6 pg (26.0-34.0); MEAN CORPUSCULAR VOLUME 95.5 fL (80-100); MEAN PLATELET VOLUME 10.7 fL (9.2-13.0); MONOCYTES 7.8 %; MONOCYTES ABSOLUTE 0.44 10/3/uL (0.21-1.20); NEUTROPHILS 66.5 %; NEUTROPHILS ABSOLUTE 3.77 10/3/uL (2.02-8.40); NUCLEATED RED BLOOD CELLS 0.5 /100WBC (0-0); PLATELET COUNT 162 10/3/uL (150-400); RBC DISTRIBUTION WIDTH 21.1 % (12.0-16.0); WHITE BLOOD CELLS 5.7 10/3/uL (4.5-10.5)
[2016-06-24 07:06] LABS: PROTIME (NOT ORD) 22.1 SEC (12.0-14.5)
[2016-06-24 07:07] LABS: MANUAL DIFF NO %
[2016-06-24 07:12] LABS: CALCIUM, SERUM 8.8 MG/DL (8.5-10.4); CHLORIDE, SERUM 102 MMOL/L (96-112); CO2 (CARBON DIOXIDE) 22 MMOL/L (24-34); POTASSIUM, SERUM 4.3 MMOL/L (3.5-5.3); SODIUM, SERUM 139 MMOL/L (135-148)
[2016-06-24 07:13] LABS: BUN (BLOOD UREA NITROGEN) 42 MG/DL (6-23); CREATININE 8.66 MG/DL (0.70-1.30); GFR AFRICAN AMERICAN 7 ML/MIN (>=60); GFR NON AFRICAN AMERICAN 6 ML/MIN (>=60); GLUCOSE, SERUM 115 MG/DL (60-99); PHOSPHORUS, SERUM 5.8 MG/DL (2.5-4.5)
[2016-06-24] MEDS ORDERED: CORDARONE PO (11:10)
[2016-06-24] MEDS ORDERED: TOPXL25 PO (11:11)
[2016-06-24] MEDS ORDERED: NITROII5C T (11:12)
[2016-08-02] MEDS ORDERED: VENTOLIN HFA INH (04:50)
[2016-08-02] MEDS ORDERED: CORDARONE PO (04:51)
[2016-08-02] MEDS ORDERED: PHOSLO PO (04:52)
[2016-08-02] MEDS ORDERED: BREO ELLIPTA 21 EACH INH (04:52)
[2016-08-02] MEDS ORDERED: L80 PO (04:54)
[2016-08-02] MEDS ORDERED: ZESTRIL5 MG PO (04:56)
[2016-08-02] MEDS ORDERED: TOPXL25 PO (04:59)
[2016-08-02] MEDS ORDERED: *UNABLE3 (05:00)
[2016-08-02] MEDS ORDERED: COUMADIN10 MG PO (05:00)
[2016-09-03] MEDS ORDERED: T PO (07:47)
[2016-09-03] MEDS ORDERED: DORYX100 MG PO (07:47)
[2016-09-03] MEDS ORDERED: ZYVOXPO PO (07:48)
[2016-09-04] MEDS ORDERED: COUMADIN10 MG PO (15:31)
[2016-10-18] MEDS ORDERED: BREO ELLIPTA 21 EACH INH (12:25)
[2016-10-18] MEDS ORDERED: VENTOLIN HFA INH (12:25)
[2016-10-18] MEDS ORDERED: ZESTRIL5 MG PO (12:26)
[2016-10-18] MEDS ORDERED: CORDARONE PO (12:26)
[2016-10-18] MEDS ORDERED: COREG12 PO (12:26)
[2016-10-18] MEDS ORDERED: COUMADIN10 MG PO (12:27)
[2016-10-18] MEDS ORDERED: NORV5 PO (12:27)
[2016-10-18] MEDS ORDERED: FLEX PO (12:28)
[2016-10-18] MEDS ORDERED: P10 (12:28)
[2016-10-23] MEDS ORDERED: NORCO1 TA1 PO (12:39)
[2016-10-23] MEDS ORDERED: PHOSLO PO (12:41)
[2016-11-16] MEDS ORDERED: *UNABLE3 (02:38)
[2016-11-16] MEDS ORDERED: NEUR300 PO (12:53)
[2016-11-16] MEDS ORDERED: PHOSLO PO (12:54)
[2016-11-16] MEDS ORDERED: COUMADIN6 MG PO (12:54)
[2016-11-16] MEDS ORDERED: COREG12 PO (12:54)
[2016-11-16] MEDS ORDERED: P10 PO (12:55)
[2016-11-16] MEDS ORDERED: FLEX PO (12:55)
[2016-11-16] MEDS ORDERED: NORCO1 TA1 PO (12:55)
[2016-11-25] MEDS ORDERED: SEVE800T PO (15:02)
[2016-11-25] MEDS ORDERED: NORCO1 TA1 PO (15:04)
[2016-11-25] MEDS ORDERED: SILVADENE1 % TOP (17:14)
[2016-12-08] MEDS ORDERED: LIPITOR40 PO (15:25)
[2016-12-08] MEDS ORDERED: HALF81 PO (15:25)
[2016-12-08] MEDS ORDERED: COREG12 PO (15:26)
[2016-12-08] MEDS ORDERED: C2 PO (15:27)
[2016-12-08] MEDS ORDERED: NORCO1 TA1 PO (15:29)
== END 2016-06-24 14:13 | disposition home or self-care (01) | DRG 308 ==
LOC: ER 15:33 → 7NO 19:59
PROVIDERS: Emergency Medicine; Internal Medicine Cardiovascular Disease; Internal Medicine Gastroenterology; Internal Medicine Nephrology; Registered Nurse
PROC: 5A1D60Z (ICD-10-PCS; principal; 2016-06-18)
PROC: 5A2204Z Restoration of Cardiac Rhythm, Single (ICD-10-PCS; 2016-06-23)
DX: I48.1 Persistent atrial fibrillation (principal); N18.6 End stage renal disease; I13.2 Hypertensive heart and chronic kidney disease with heart failure and with stage 5 chronic kidney disease, or end stage renal disease; J90 Pleural effusion, not elsewhere classified; K76.6 Portal hypertension; I42.9 Cardiomyopathy, unspecified; I50.42 Chronic combined systolic (congestive) and diastolic (congestive) heart failure; I48.4 Atypical atrial flutter; Z91.14 Patient's other noncompliance with medication regimen; Z99.2 Dependence on renal dialysis; Z88.0 Allergy status to penicillin; Z91.013 Allergy to seafood; Z91.018 Allergy to other foods
CPT/HCPCS: 71020; 76705; 80048; 80053; 80069; 80074; 80076; 82962; 83735; 84484; 85025; 85610; 85730; 87040; 92960; 93005; 93312; 93320; 93325; 94640; 96365; 96366; 96375; 99291; A9270-GY; G0257; J0282

== ENCOUNTER 2016-07-04 20:26 | Inpatient (IN) | payer MEDICARE, OTHER ==
--- NOTE | ~2016-07-04 | CN ---
Consultation Report [facility] [address] [place]. [address] NAME: WENDY GALAVIZ : 61 STATUS : ADM IN PAT#: [id number] AGE: 51 ADM/REG DATE : 07/05/16 MR#: [id number] REPORT SERV DATE: 07/05/16 DICTATED BY: DATE: REPORT STATUS : Draft TRANSCRIBED BY: MODL DATE: 07/05/16 DATE OF CONSULTATION: 07/05/2016 CHIEF COMPLAINT/REASON FOR CONSULT: Severe tricuspid regurgitation. PRIMARY DRAFTER CIVIL (CAD): Chidi Waldrop M.D. HISTORY OF PRESENT ILLNESS: Mr. Esquivel is a pleasant 51-year-old gentleman with a known history of severe tricuspid regurgitation and nonischemic cardiomyopathy. He also has end- stage renal disease, on hemodialysis. He states that he had increasing shortness of breath and increasing lower extremity edema, which prompted his admission to the hospital. He states that he also has a persistent cough. He has undergone hemodialysis since admission, and this has improved his lower extremity edema and decreased the tenderness in his legs bilaterally. The patient has undergone multiple procedures this past year including multiple echocardiograms, at least two transesophageal echocardiograms, and cardiac catheterization. Repeat echocardiogram confirmed that the patient still has severe tricuspid regurgitation, right heart failure, at least moderate mitral regurgitation and left heart failure. Dr. Waldrop's clinic note notes that the patient has been noncompliant with his medical regimen. The patient does state that he has been taking his Coumadin on an outpatient basis, but his INR was subtherapeutic on admission. He has not been on a consistent heart failure regimen due to medical noncompliance. Of note, the patient has been noncompliant with a low-sodium diet. He does not particularly add salt to his food, but does regularly eat canned soups on a frequent basis. He does not watch or limit his fluid or sodium intake. PAST MEDICAL HISTORY: 1. End-stage renal disease, on hemodialysis. 2. Nonischemic cardiomyopathy. Cardiac catheterization performed on 04/2016 demonstrated no obstructive coronary artery disease. 3. Hypertension. 4. Ascites. 5. Gastroesophageal reflux disease. 6. Chronic left and right ventricular systolic dysfunction. 7. Persistent atrial fibrillation, status post repeat cardioversion. ALLERGIES: 1. VANCOMYCIN. 2. SHELLFISH. 3. IV CONTRAST DYE. 4. PENICILLIN. Consultation Report [facility] [id number] [place]. [address] NAME: WENDY GALAVIZ : 61 STATUS : ADM IN PAT#: [id number] AGE: 51 ADM/REG DATE : 07/05/16 MR#: [id number] REPORT SERV DATE: 07/05/16 DICTATED BY: DATE: REPORT STATUS : Draft TRANSCRIBED BY: MODL DATE: 07/05/16 OUTPATIENT MEDICATIONS: Are not located in the medical record at this time. No medical reconciliation has been performed. INPATIENT MEDICATIONS: 1. Albumin. 2. Apresoline. 3. Dilaudid. 4. Heparin flush. 5. Coumadin per sliding scale. REVIEW OF SYSTEMS: All systems reviewed and is negative except for dictated in the HPI. PHYSICAL EXAMINATION: VITAL SIGNS: Temperature 97.6, pulse is 86, respirations 18, oxygen saturations 97% on room air. Blood pressures range between 112 and 125 over 78 to 87. Weight is 86 kg, down from 88.9 kg. GENERAL: Mr. Galaviz is a 51-year-old gentleman, who appears older than his stated age. NECK: I could not appreciate jugular venous distention or carotid bruits. HEART: Regular rate and rhythm. There is a right ventricular heave present. There is a 3/6 systolic and a 2/6 diastolic murmur present. ABDOMEN: Distended. EXTREMITIES: Warm and well perfused. There is not currently any pitting edema. NEUROLOGIC: The patient is alert and oriented. I could not appreciate focal neurologic deficits. MUSCULOSKELETAL: No clubbing or cyanosis of the digits. LABORATORY DATA: Hemoglobin 12.8, hematocrit 37.1, white blood cell count 7.7, and platelet count 199. INR is 1.3. Sodium 133, potassium 3.7, BUN 32, creatinine 5.93. Troponin 0.03 to 0.04. BNP is 1351. CPK 52. MB is 1. An EKG performed on admission demonstrated sinus rhythm with a first-degree AV block present. There is low voltage in the limb leads. Poor R-wave progression. T-wave inversions in V5 and V6. IMPRESSION REPORT AND PLAN: 1. Nonischemic cardiomyopathy with biventricular failure. 2. Severe tricuspid regurgitation. 3. Moderate mitral regurgitation. 4. Persistent atrial fibrillation, now in sinus rhythm. 5. End-stage renal disease, on hemodialysis. 6. Hyperlipidemia. 7. Medical noncompliance. RECOMMENDATIONS: Consultation Report [address] [id number] [place]. [address] NAME: WENDY GALAVIZ : 61 STATUS : ADM IN PAT#: [id number] AGE: 51 ADM/REG DATE : 07/05/16 MR#: [id number] REPORT SERV DATE: 07/05/16 DICTATED BY: DATE: REPORT STATUS : Draft TRANSCRIBED BY: MODL DATE: 07/05/16 1. We would re-favor a trial of medical management. 2. I have counseled the patient to limit his sodium to less than 2 g per day. 3. Fluid restrict to less than 2 L per day. 4. We would restart the patient's warfarin for a goal INR of 2-3. 5. Start low-dose Coreg and lisinopril. 6. As far as referral for surgical evaluation, I am concerned about if the tricuspid regurgitation was repaired, if it might lead to increasing right heart failure, but I would defer this to his primary makeup sales consultant who will be back on Thursday. 7. Additional recommendations pending clinical course. MIRIAM/BONNIE Yessica Pineda M.D. / [id number] CC: Elliot Treadwell M.D.
--- NOTE | ~2016-07-04 | DS ---
Discharge Summary [facility] [address] [place]. [address] NAME: WENDY ENNIS : 61 STATUS : DIS IN PAT#: [id number] AGE: 51 ADM/REG DATE : 07/05/16 MR#: [id number] REPORT SERV DATE: 07/19/16 DICTATED BY: JORGE HELTON DATE: 07/18/16 REPORT STATUS : Draft TRANSCRIBED BY: BONNIE DATE: 07/18/16 Data Collection from hospitalization DISCHARGE DIAGNOSES: 1. End-stage renal disease. 2. Paroxysmal atrial fibrillation. 3. Congestive heart failure. 4. Valvular disease. 5. Severe tricuspid regurgitation. 6. Moderate mitral regurgitation. 7. Hypertension. 8. Hyperlipidemia. 9. Medical noncompliance. 10.Nonischemic cardiomyopathy. 11.History of atrial fibrillation. CONSULTATIONS: Yessica Pineda M.D. PROCEDURES: 1. Venous Doppler ultrasound of the bilateral lower extremities, 07/04/2016. 2. CT scan of the abdomen and pelvis without contrast, 07/05/2016. 3. Ultrasound-guided paracentesis, 07/08/2016. PATHOLOGY: Peritoneal fluid for cytology (thin prep, cell block, direct smears)-benign mesothelial hyperplasia noninflammatory. DISCHARGE MEDICATIONS: 1. Ventolin two puffs via inhaler as needed. 2. Cordarone 200 mg daily. 3. Elavil 40 mg at bedtime. 4. PhosLo three tablets with meals. 5. Coreg 6.25 mg twice a day. 6. Breo Ellipta one puff via inhaler every morning. 7. Lasix 80 mg on Thursday, Thursday, Thursday, . 8. Zestril 5 mg daily. 9. Coumadin 10 mg every evening. 10.He was instructed not to continue Toprol-XL, Norvasc, or Ymiudbxq-MLH-8. CONDITION ON DISCHARGE: Stable. DISPOSITION: The patient was discharged home on a low-sodium, renal-diabetic diet with activities as instructed. He would follow up with Dr. Chidi Waldrop on 07/23/2016. HOSPITAL COURSE: This is a 51-year-old man who dialyzes on Mondays, Wednesdays, and Fridays via a left upper extremity fistula for end-stage renal disease. He had required frequent admissions and returns to the [facility] with complaints of shortness of breath, leg swelling, and pain as well as ascites. It appears that he had a previous paracentesis while an inpatient, and had undergone imaging of the liver and an echocardiogram. He is Discharge Summary [place] [address] [place]. [address] NAME: WENDY ENNIS : 61 STATUS : DIS IN PAT#: [id number] AGE: 51 ADM/REG DATE : 07/05/16 MR#: [id number] REPORT SERV DATE: 07/19/16 DICTATED BY: JORGE HELTON DATE: 07/18/16 REPORT STATUS : Draft TRANSCRIBED BY: MODTiana DATE: 07/18/16 followed in the outpatient setting by Dr. Waldrop for his cardiac followup. On previous echocardiogram he was noted to have an ejection fraction of 45% with 49 mmHg pulmonary pressure with severe tricuspid regurgitation. In conversation with the patient on the day of this admission it did not appear that there had been a discussion of further intervention from a Cardiology standpoint; however, he was unclear with his current status from a cardiac perspective. He also had a CT scan of the abdomen and pelvis on the day prior to admission which showed no pancreatic inflammation, although his lipase was elevated. Previous hepatic ultrasound suggested that he does have portal hypertension and ascites with an enlarged liver, this was performed on 06/18/2016. He was admitted to the hospital at this time for further evaluation and treatment. Upon admission, hemodialysis therapy was going to be performed. He had undergone a bilateral lower extremity ultrasound that showed no evidence of DVT, but he did exhibit lower extremity edema. We would trend his cardiac enzymes and follow up closely. He does have severe tricuspid regurgitation. We would protect the left upper extremity fistula. Plans would be made to perform a paracentesis. He was seen in consultation by Dr. Yessica Pineda regarding severe tricuspid regurgitation. The patient had been noncompliant with his medical regimen. He said that he had been taking his Coumadin on an outpatient basis, but his INR level was subtherapeutic on admission. He had not been on a consistent heart failure regimen due to medical noncompliance. He had also been noncompliant with a low- sodium diet. He does not watch or limit his fluid or sodium intake. Echocardiogram had confirmed that the patient still has severe tricuspid regurgitation, right heart failure, and at least moderate mitral regurgitation and left heart failure. INR level was 1.3. Troponin was 0.03-0.04. EKG on admission demonstrated sinus rhythm with first-degree AV block. There was low voltage in the limb leads. There was poor R-wave progression. T-wave inversions were seen in V5 and V6. The patient has nonischemic cardiomyopathy with biventricular failure, severe tricuspid regurgitation, moderate mitral regurgitation. He has persistent atrial fibrillation, although now is in a sinus rhythm. We would re-favor a trial of medical management. He was counseled to limit his sodium to less than 2 g per day and fluid restriction to less than 2 L per day. Warfarin was going to be restarted with a goal INR of 2-3. We would start low-dose Coreg and lisinopril. The following day, he said that his leg swelling had improved. His abdomen was mildly distended. He had trace lower extremity edema. Coreg was increased as well as lisinopril. On 07/07/2016, INR level was 1.6. He had no new complaints. He denied any chest pain. He still has some orthopnea, shortness of breath, and edema improved. He had mild atypical chest pain. He had a CT scan of the abdomen and pelvis without contrast. The following day, INR level was 1.9. He appeared comfortable. It was felt that he would need to undergo a paracentesis. An ultrasound-guided paracentesis was performed, 2.9 L of fluid was obtained, this was submitted for analysis. Discharge planning was performed. On 07/09/2016, hemodialysis therapy was performed. His lungs were clear. He had no edema. Discharge instructions were given. Due to his improved and stable condition, he was discharged home with the above- stated instructions. Information collected by: Sherley Limon I submit the above information as my discharge summary. Discharge Summary [address] [place]. [address] NAME: WENDY ENNIS : 61 STATUS : DIS IN PAT#: [id number] AGE: 51 ADM/REG DATE : 07/05/16 MR#: [id number] REPORT SERV DATE: 07/19/16 DICTATED BY: JORGE HELTON DATE: 07/18/16 REPORT STATUS : Draft TRANSCRIBED BY: MODL DATE: 07/18/16 TG/MODL Jorge Helton M.D. / [id number] CC: Meenu Lopez M.D.
--- NOTE | ~2016-07-04 | HP ---
History And Physical [place] [id number] [facility] [place]. [address] NAME: WENDY ENNIS : 61 STATUS : ADM IN PAT#: [id number] AGE: 51 ADM/REG DATE : 07/05/16 MR#: [id number] REPORT SERV DATE: 07/05/16 DICTATED BY: NELLI HERNANDEZ DATE: 07/05/16 REPORT STATUS : Draft TRANSCRIBED BY: MODTiana DATE: 07/05/16 DATE OF ADMISSION: 07/05/2016 REASON FOR ADMISSION: End-stage renal disease with question of volume overload and elevated lipase. HISTORY OF PRESENT ILLNESS: This is a very pleasant 51-year-old male patient, well-known to our service, who dialyzes on a [place]-Soja[facility] schedule via left upper extremity fistula. He has required frequent admissions and returns to [facility] with a complaint of shortness of breath, leg swelling and pain, abdominal pain, and ascites. It appears that he has had a previous paracentesis while inpatient and has also undergone imaging of the liver and echocardiogram. He follows in the outpatient setting with Dr. Waldrop for his cardiac followup. On previous echocardiogram, he is noted to have an ejection fraction of 45% with 49 mmHg pulmonary pressure with severe tricuspid regurg. In conversation with the patient today, it does not appear that there has been discussion of further intervention from a Cardiology standpoint; however, he is unclear with his current status from a cardiac perspective. He has also had a CT of the abdomen and pelvis today, prior to admission, which shows no pancreatic inflammation although his lipase is elevated. Previous hepatic ultrasound suggest that he does have portal hypertension and ascites with an enlarged liver, and this was undertaken on 06/18/2016. The patient is awake and alert this morning. He is in no acute distress. Denies current chest pain. No nausea, vomiting, or diarrhea. PAST MEDICAL HISTORY: Positive for end-stage renal disease, Thursday, Thursday, Thursday hemodialysis via a left upper extremity fistula. History is also positive for nonischemic cardiomyopathy, followed by [facility]; chronic hypertension; known ascites with previous paracentesis; gastroesophageal reflux disease; left ventricular hypertrophy and hypertension; previous MRSA abscess of the right cheek; previous admissions for chest pain; frequent ongoing problems with cough; previous atrial fibrillation with a rapid ventricular response with conversion with medication, and eventually, he also required cardioversion. The remainder of his history is positive for cardiac catheterization on 04/16/2016, transesophageal echocardiogram and cardioversion 04/18/2016. REVIEW OF SYSTEMS: Completed. Please see HPI for pertinent details. SOCIAL HISTORY: No ETOH, no illicit drugs, no tobacco by report. HOME MEDICATIONS AND ALLERGIES: Home medications are currently unavailable. Previous allergies show, according to previous dictations, vancomycin, shellfish, dye, and penicillin. PHYSICAL EXAMINATION: VITAL SIGNS: Blood pressure 134/90, temperature 98.3, heart rate of 90 beats per minute, he is 98% on room air. GENERAL: He is awake, alert, and oriented x3, in no acute distress. History And Physical [address] [address] NAME: WENDY ENNIS : 61 STATUS : ADM IN [facility]#: [id number] AGE: 51 ADM/REG DATE : 07/05/16 MR#: [id number] REPORT SERV DATE: 07/05/16 DICTATED BY: NELLI HERNANDEZ DATE: 07/05/16 REPORT STATUS : Draft TRANSCRIBED BY: BONNIE DATE: 07/05/16 HEENT: Normocephalic and atraumatic. Normal ocular movements. No scleral icterus. No conjunctival pallor is appreciated. NECK: Supple without thyromegaly. No JVD or mass. CHEST: Shows positive S1 and S2. No rubs or gallops. LUNGS: Diminished. Clear to auscultation otherwise throughout. Normal expansion and effort bilaterally. GI: Shows a rounded non-firm abdomen with notable ascites to evaluation. : Deferred. EXTREMITIES: Show positive pulses. No clubbing, cyanosis, nor edema. He does have a well pronounced fistula to his left upper extremity that appears to have a palpable bruit and thrill, and is amenable to usage. NEUROLOGIC: Appears to be grossly intact. Nonfocal. SKIN: Warm, dry, and intact to visualized surfaces. No rash, lesions, or ecchymosis. PSYCHIATRIC: He is of appropriate mood and affect and grossly intact. LABORATORY DATA: Pertinent laboratories and imaging through this evaluation: CT of the abdomen and pelvis without contrast shows gallbladder not visualized, probable prior cholecystectomy. No ductal dilation is seen. Moderate amount of ascites is noted. No abnormality of the pancreas is noted with bilateral renal cysts. No adrenal masses. No adenopathy. No free air or fluid collection is noted. Prominent cardiomegaly with trace pericardial effusion with stranding of the right pericardial fat and pelvis shows no evidence of inflammation or abscess in the region of the appendix or elsewhere. Bladder wall is thickened as noted. No abnormalities of the prostate are seen. No masses or adenopathy is noted. Portable chest x-ray: There is minimal right basilar infiltrate and effusion. Comprehensive metabolic panel: Sodium 133, potassium 3.7, chloride 93, CO2 of 30, BUN 32, creatinine 5.93, reflected GFR 12 mL/minute, glucose of 83, calcium 8.4. Albumin 2.7, globulin 4.4, total bilirubin 5.2, alkaline phosphatase 336, ALT and AST 44 and 52 respectively. Lipase at 966. Troponin at 0.04. B-natriuretic peptide CBC: White blood cell count 7.7, RBC 3.83, hemoglobin 12.8, hematocrit 37.1, platelets at 199. IMPRESSION AND PLAN: This is an end-stage renal disease patient, Opbejk-[facility]amodxpao-Liswrn hemodialysis; left upper extremity fistula, now presenting to [facility] with complaints of lower extremity edema, shortness of breath, and ascites. He has had previous liver ultrasound on 06/18/2016 indicating hepatomegaly with noted ascites, and during his last admission in early June, showed ejection fraction at 45% with RVSP at 49 mmHg with severe tricuspid regurg. It is unclear after review with the patient the nature of his followup with Cardiology and the frequency. He does show an elevated lipases and LFTs are normal. No evidence of cholecystitis on CT of the abdomen and pelvis, and he does have ascites. We will undertake hemodialysis today for 2 hours to attempt UF as some of his lab abnormalities may be related to passive congestion. We will not repeat his echocardiogram or his liver ultrasound at this time as those have both recently been undertaken. He has had a bilateral lower extremity ultrasound that shows no evidence of DVT, but he does exhibit lower extremity edema. We would trend his cardiac enzymes and follow them closely and consider a Cardiology evaluation as the question is still in place regarding undertaking any further evaluation or intervention for his severe tricuspid regurgitation. Asked pharmacy to dose his Coumadin. No clinical indication at this point for antibiotics. History And Physical [address] [place]. [address] NAME: WENDY ENNIS : 61 STATUS : ADM IN PAT#: [id number] AGE: 51 ADM/REG DATE : 07/05/16 MR#: [id number] REPORT SERV DATE: 07/05/16 DICTATED BY: NELLI HERNANDEZ DATE: 07/05/16 REPORT STATUS : Draft TRANSCRIBED BY: BONNIE DATE: 07/05/16 Protect his left upper extremity fistula. Paracentesis on Thursday as this is a weekend. We will not request a stat paracentesis on this patient. Place the patient on strict I's and O's, daily weights. Further modification of the patient's treatment plan will be made based on clinical presentation of the patient, laboratory results, and further consultation with renal attending. DICTATED BY: Christophe Marshall NP JR/BONNIE Nelli Hernandez M.D. / [id number] CC: Elliot Treadwell M.D.
[~2016-07-04 20:26] MED LIST changes: +AMIT10 PO; +COUMADIN10 MG PO; +NITROII5C T
[2016-07-05 00:18] LABS: BASOPHILS 0.3 %; BASOPHILS ABSOLUTE 0.02 10/3/uL (0.0-0.16); EOSINOPHILS 3.4 %; EOSINOPHILS ABSOLUTE 0.26 10/3/uL (0.0-0.53); ER CBC TAT 0 Hrs 05 Mins; HEMATOCRIT 37.1 % (40.0-51.0); HEMOGLOBIN 12.8 g/dL (13.6-17.8); IMMATURE GRANULOCYTES 0.4 %; IMMATURE GRANULOCYTES ABSOLUTE 0.03 10/3/uL (0.0-0.11); LYMPHOCYTES 15.5 %; LYMPHOCYTES ABSOLUTE 1.19 10/3/uL (0.67-4.30); MEAN CORPUS HGB CONC 34.5 g/dL (32.0-36.0); MEAN CORPUSCULAR HEMOGLOB 33.4 pg (26.0-34.0); MEAN CORPUSCULAR VOLUME 96.9 fL (80-100); MEAN PLATELET VOLUME 9.9 fL (9.2-13.0); MONOCYTES 10.9 %; MONOCYTES ABSOLUTE 0.84 10/3/uL (0.21-1.20); NEUTROPHILS 69.5 %; NEUTROPHILS ABSOLUTE 5.34 10/3/uL (2.02-8.40); PLATELET COUNT 199 10/3/uL (150-400); RBC DISTRIBUTION WIDTH 20.8 % (12.0-16.0); RED CELL COUNT 3.83 10/6/uL (4.7-6.1); WHITE BLOOD CELLS 7.7 10/3/uL (4.5-10.5)
[2016-07-05 00:19] LABS: MANUAL DIFF NO %
[2016-07-05 00:25] LABS: INTERNATIONAL NORMAL RATI 1.3 UNITS (-); PARTIAL THROMBO TIME 29.8 SEC (22.5-37.2); PROTIME (NOT ORD) 15.8 SEC (12.0-14.5)
[2016-07-05 00:46] LABS: A/G RATIO 0.6 (0.7-1.9); ALBUMIN 2.7 G/DL (3.5-5.0); ALKALINE PHOSPHATASE 336 U/L (45-117); BUN (BLOOD UREA NITROGEN) 32 MG/DL (6-23); CALCIUM, SERUM 8.4 MG/DL (8.5-10.4); CHLORIDE, SERUM 93 MMOL/L (96-112); CO2 (CARBON DIOXIDE) 30 MMOL/L (24-34); CREATININE 5.93 MG/DL (0.70-1.30); GFR AFRICAN AMERICAN 12 ML/MIN (>=60); GFR NON AFRICAN AMERICAN 10 ML/MIN (>=60); GLOBULIN 4.4 G/DL (2.5-4.1); GLUCOSE, SERUM 83 MG/DL (60-99); POTASSIUM, SERUM 3.7 MMOL/L (3.5-5.3); SGOT(AST) 52 U/L (5-40); SGPT(ALT) 44 U/L (5-65); SODIUM, SERUM 133 MMOL/L (135-148); TOTAL BILIRUBIN 5.2 MG/DL (0-1.2); TOTAL PROTEIN 7.1 G/DL (6.0-8.5)
[2016-07-05 01:19] LABS: TROPONIN I 0.04 NG/ML (<0.05)
[2016-07-05 12:48] LABS: INTERNATIONAL NORMAL RATI 1.3 UNITS (-); PROTIME (NOT ORD) 16.2 SEC (12.0-14.5)
[2016-07-05 12:57] LABS: CPK 52 U/L (0-200); TROPONIN I 0.03 NG/ML (<0.05)
[2016-07-05 17:09] LABS: CPK 55 U/L (0-200); TROPONIN I 0.03 NG/ML (<0.05)
[2016-07-05] MEDS ORDERED: CATAPRES2 TOP (19:22)
[2016-07-05] MEDS ORDERED: L80 PO (19:23)
[2016-07-05] MEDS ORDERED: PHOSLO PO (19:27)
[2016-07-05 22:29] LABS: CPK 51 U/L (0-200); TROPONIN I 0.03 NG/ML (<0.05)
[2016-07-05 22:30] LABS: CK-MB 1.3 NG/ML
[2016-07-06 07:00] LABS: BASOPHILS 0.7 %; BASOPHILS ABSOLUTE 0.05 10/3/uL (0.0-0.16); EOSINOPHILS 5.9 %; EOSINOPHILS ABSOLUTE 0.41 10/3/uL (0.0-0.53); HEMATOCRIT 37.5 % (40.0-51.0); HEMOGLOBIN 12.7 g/dL (13.6-17.8); IMMATURE GRANULOCYTES 0.4 %; IMMATURE GRANULOCYTES ABSOLUTE 0.03 10/3/uL (0.0-0.11); LYMPHOCYTES 20.3 %; LYMPHOCYTES ABSOLUTE 1.41 10/3/uL (0.67-4.30); MEAN CORPUS HGB CONC 33.9 g/dL (32.0-36.0); MEAN CORPUSCULAR HEMOGLOB 32.8 pg (26.0-34.0); MEAN CORPUSCULAR VOLUME 96.9 fL (80-100); MEAN PLATELET VOLUME 10.4 fL (9.2-13.0); MONOCYTES 11.7 %; MONOCYTES ABSOLUTE 0.81 10/3/uL (0.21-1.20); NEUTROPHILS ABSOLUTE 4.24 10/3/uL (2.02-8.40); PLATELET COUNT 193 10/3/uL (150-400); RBC DISTRIBUTION WIDTH 20.8 % (12.0-16.0); RED CELL COUNT 3.87 10/6/uL (4.7-6.1)
[2016-07-06 07:01] LABS: MANUAL DIFF NO %
[2016-07-06 07:06] LABS: INTERNATIONAL NORMAL RATI 1.2 UNITS (-); PROTIME (NOT ORD) 15.4 SEC (12.0-14.5)
[2016-07-06 07:14] LABS: ALBUMIN 2.7 G/DL (3.5-5.0); BUN (BLOOD UREA NITROGEN) 37 MG/DL (6-23); CALCIUM, SERUM 8.6 MG/DL (8.5-10.4); CHLORIDE, SERUM 99 MMOL/L (96-112); CO2 (CARBON DIOXIDE) 26 MMOL/L (24-34); CREATININE 6.62 MG/DL (0.70-1.30); GFR AFRICAN AMERICAN 10 ML/MIN (>=60); GFR NON AFRICAN AMERICAN 9 ML/MIN (>=60); GLUCOSE, SERUM 65 MG/DL (60-99); PHOSPHORUS, SERUM 7.1 MG/DL (2.5-4.5); POTASSIUM, SERUM 4.6 MMOL/L (3.5-5.3); SODIUM, SERUM 137 MMOL/L (135-148)
[2016-07-07 12:07] LABS: BASOPHILS 0.6 %; BASOPHILS ABSOLUTE 0.04 10/3/uL (0.0-0.16); EOSINOPHILS 6.9 %; EOSINOPHILS ABSOLUTE 0.46 10/3/uL (0.0-0.53); HEMATOCRIT 37.1 % (40.0-51.0); HEMOGLOBIN 12.9 g/dL (13.6-17.8); IMMATURE GRANULOCYTES 0.3 %; IMMATURE GRANULOCYTES ABSOLUTE 0.02 10/3/uL (0.0-0.11); LYMPHOCYTES 17.5 %; LYMPHOCYTES ABSOLUTE 1.17 10/3/uL (0.67-4.30); MEAN CORPUS HGB CONC 34.8 g/dL (32.0-36.0); MEAN CORPUSCULAR HEMOGLOB 33.4 pg (26.0-34.0); MEAN CORPUSCULAR VOLUME 96.1 fL (80-100); MEAN PLATELET VOLUME 10.6 fL (9.2-13.0); MONOCYTES 12.4 %; MONOCYTES ABSOLUTE 0.83 10/3/uL (0.21-1.20); NEUTROPHILS 62.3 %; NEUTROPHILS ABSOLUTE 4.17 10/3/uL (2.02-8.40); PLATELET COUNT 164 10/3/uL (150-400); RBC DISTRIBUTION WIDTH 20.3 % (12.0-16.0); RED CELL COUNT 3.86 10/6/uL (4.7-6.1); WHITE BLOOD CELLS 6.7 10/3/uL (4.5-10.5)
[2016-07-07 12:15] LABS: MANUAL DIFF NO %
[2016-07-07 12:18] LABS: INTERNATIONAL NORMAL RATI 1.6 UNITS (-); PARTIAL THROMBO TIME 32.3 SEC (22.5-37.2)
[2016-07-07 12:19] LABS: PROTIME (NOT ORD) 18.9 SEC (12.0-14.5)
[2016-07-07 12:31] LABS: ALBUMIN 2.6 G/DL (3.5-5.0); CALCIUM, SERUM 8.7 MG/DL (8.5-10.4); CHLORIDE, SERUM 98 MMOL/L (96-112); CO2 (CARBON DIOXIDE) 25 MMOL/L (24-34); GFR AFRICAN AMERICAN 8 ML/MIN (>=60); GFR NON AFRICAN AMERICAN 7 ML/MIN (>=60); GLUCOSE, SERUM 72 MG/DL (60-99); PHOSPHORUS, SERUM 7.1 MG/DL (2.5-4.5); POTASSIUM, SERUM 4.7 MMOL/L (3.5-5.3); SODIUM, SERUM 134 MMOL/L (135-148); TOTAL PROTEIN 6.8 G/DL (6.0-8.5)
[2016-07-07 12:32] LABS: BUN (BLOOD UREA NITROGEN) 56 MG/DL (6-23); CREATININE 8.21 MG/DL (0.70-1.30)
[2016-07-08 05:27] LABS: INTERNATIONAL NORMAL RATI 1.9 UNITS (-); PROTIME (NOT ORD) 21.5 SEC (12.0-14.5)
[2016-07-08 05:29] LABS: CALCIUM, SERUM 8.6 MG/DL (8.5-10.4); CHLORIDE, SERUM 103 MMOL/L (96-112); CO2 (CARBON DIOXIDE) 26 MMOL/L (24-34); POTASSIUM, SERUM 4.2 MMOL/L (3.5-5.3); SODIUM, SERUM 140 MMOL/L (135-148)
[2016-07-08 05:30] LABS: BUN (BLOOD UREA NITROGEN) 36 MG/DL (6-23); GFR AFRICAN AMERICAN 11 ML/MIN (>=60); GFR NON AFRICAN AMERICAN 9 ML/MIN (>=60); GLUCOSE, SERUM 90 MG/DL (60-99)
[2016-07-08 11:35] LABS: BF TOTAL CELL CT (NOT ORD 143 /MM3; BODY FLUID RBC (NOT ORD) 1087 /MM3
[2016-07-08 11:47] LABS: BD FL LYMPH (NOT ORD) 35 %; BD FL SOURCE (NOT ORD) ASCITES; BF BASO (NOT OF) 0 %; BF LARGE MONONUCLEAR 64 %; BODY FLUID EOS (NOT ORD) 0 %; BODY FLUID SEG (NOT ORD) 1 %
[2016-07-09 05:13] LABS: BASOPHILS 0.5 %; BASOPHILS ABSOLUTE 0.03 10/3/uL (0.0-0.16); EOSINOPHILS 7.6 %; EOSINOPHILS ABSOLUTE 0.44 10/3/uL (0.0-0.53); HEMOGLOBIN 12.8 g/dL (13.6-17.8); IMMATURE GRANULOCYTES 0.3 %; IMMATURE GRANULOCYTES ABSOLUTE 0.02 10/3/uL (0.0-0.11); LYMPHOCYTES 17.5 %; LYMPHOCYTES ABSOLUTE 1.01 10/3/uL (0.67-4.30); MEAN CORPUS HGB CONC 33.7 g/dL (32.0-36.0); MEAN CORPUSCULAR VOLUME 97.9 fL (80-100); MONOCYTES 9.7 %; MONOCYTES ABSOLUTE 0.56 10/3/uL (0.21-1.20); NEUTROPHILS 64.4 %; NEUTROPHILS ABSOLUTE 3.71 10/3/uL (2.02-8.40); PLATELET COUNT 154 10/3/uL (150-400); RBC DISTRIBUTION WIDTH 20.4 % (12.0-16.0); RED CELL COUNT 3.88 10/6/uL (4.7-6.1); WHITE BLOOD CELLS 5.8 10/3/uL (4.5-10.5)
[2016-07-09 05:14] LABS: MANUAL DIFF NO %
[2016-07-09 05:18] LABS: INTERNATIONAL NORMAL RATI 2.5 UNITS (-)
[2016-07-09 05:25] LABS: ALBUMIN 2.8 G/DL (3.5-5.0); CALCIUM, SERUM 8.7 MG/DL (8.5-10.4); CHLORIDE, SERUM 103 MMOL/L (96-112); CO2 (CARBON DIOXIDE) 25 MMOL/L (24-34); POTASSIUM, SERUM 4.2 MMOL/L (3.5-5.3); SODIUM, SERUM 142 MMOL/L (135-148)
[2016-07-09 05:31] LABS: BUN (BLOOD UREA NITROGEN) 50 MG/DL (6-23); CREATININE 7.72 MG/DL (0.70-1.30); GFR AFRICAN AMERICAN 8 ML/MIN (>=60); GFR NON AFRICAN AMERICAN 7 ML/MIN (>=60); GLUCOSE, SERUM 116 MG/DL (60-99); PHOSPHORUS, SERUM 5.8 MG/DL (2.5-4.5)
[2016-07-09] MEDS ORDERED: COREG6 PO (12:51)
[2016-07-09] MEDS ORDERED: ZESTRIL5 MG PO (12:52)
[2016-07-13 11:20] LABS: BF ALBUMIN 1.5 G/DL; PROTEIN BODY FLUID 3.2 G/DL
[2016-08-02] MEDS ORDERED: VENTOLIN HFA INH (04:50)
[2016-08-02] MEDS ORDERED: CORDARONE PO (04:51)
[2016-08-02] MEDS ORDERED: PHOSLO PO (04:52)
[2016-08-02] MEDS ORDERED: BREO ELLIPTA 21 EACH INH (04:52)
[2016-08-02] MEDS ORDERED: L80 PO (04:54)
[2016-08-02] MEDS ORDERED: ZESTRIL5 MG PO (04:56)
[2016-08-02] MEDS ORDERED: TOPXL25 PO (04:59)
[2016-08-02] MEDS ORDERED: *UNABLE3 (05:00)
[2016-08-02] MEDS ORDERED: COUMADIN10 MG PO (05:00)
[2016-09-03] MEDS ORDERED: T PO (07:47)
[2016-09-03] MEDS ORDERED: DORYX100 MG PO (07:47)
[2016-09-03] MEDS ORDERED: ZYVOXPO PO (07:48)
[2016-09-04] MEDS ORDERED: COUMADIN10 MG PO (15:31)
[2016-10-18] MEDS ORDERED: BREO ELLIPTA 21 EACH INH (12:25)
[2016-10-18] MEDS ORDERED: VENTOLIN HFA INH (12:25)
[2016-10-18] MEDS ORDERED: COREG12 PO (12:26)
[2016-10-18] MEDS ORDERED: CORDARONE PO (12:26)
[2016-10-18] MEDS ORDERED: ZESTRIL5 MG PO (12:26)
[2016-10-18] MEDS ORDERED: COUMADIN10 MG PO (12:27)
[2016-10-18] MEDS ORDERED: NORV5 PO (12:27)
[2016-10-18] MEDS ORDERED: P10 (12:28)
[2016-10-18] MEDS ORDERED: FLEX PO (12:28)
[2016-10-23] MEDS ORDERED: NORCO1 TA1 PO (12:39)
[2016-10-23] MEDS ORDERED: PHOSLO PO (12:41)
[2016-11-16] MEDS ORDERED: *UNABLE3 (02:38)
[2016-11-16] MEDS ORDERED: NEUR300 PO (12:53)
[2016-11-16] MEDS ORDERED: COUMADIN6 MG PO (12:54)
[2016-11-16] MEDS ORDERED: COREG12 PO (12:54)
[2016-11-16] MEDS ORDERED: PHOSLO PO (12:54)
[2016-11-16] MEDS ORDERED: P10 PO (12:55)
[2016-11-16] MEDS ORDERED: NORCO1 TA1 PO (12:55)
[2016-11-16] MEDS ORDERED: FLEX PO (12:55)
[2016-11-25] MEDS ORDERED: SEVE800T PO (15:02)
[2016-11-25] MEDS ORDERED: NORCO1 TA1 PO (15:04)
[2016-11-25] MEDS ORDERED: SILVADENE1 % TOP (17:14)
[2016-12-08] MEDS ORDERED: HALF81 PO (15:25)
[2016-12-08] MEDS ORDERED: LIPITOR40 PO (15:25)
[2016-12-08] MEDS ORDERED: COREG12 PO (15:26)
[2016-12-08] MEDS ORDERED: C2 PO (15:27)
[2016-12-08] MEDS ORDERED: NORCO1 TA1 PO (15:29)
== END 2016-07-09 18:44 | disposition home or self-care (01) | DRG 291 ==
LOC: ER 20:26 → 2SO 07-05 04:18
PROVIDERS: Internal Medicine; Internal Medicine Nephrology; Nurse Practitioner; Registered Nurse
PROC: 5A1D60Z (ICD-10-PCS; 2016-07-05)
PROC: 0W9G3ZZ Drainage of Peritoneal Cavity, Percutaneous Approach (ICD-10-PCS; principal; 2016-07-08)
DX: I13.2 Hypertensive heart and chronic kidney disease with heart failure and with stage 5 chronic kidney disease, or end stage renal disease (principal); N18.6 End stage renal disease; R18.8 Other ascites; I42.8 Other cardiomyopathies; I48.1 Persistent atrial fibrillation; I36.1 Nonrheumatic tricuspid (valve) insufficiency; I50.21 Acute systolic (congestive) heart failure; E87.70 Fluid overload, unspecified; Z99.2 Dependence on renal dialysis; K21.9 Gastro-esophageal reflux disease without esophagitis; Z91.19 Patient's noncompliance with other medical treatment and regimen; I34.0 Nonrheumatic mitral (valve) insufficiency; E78.5 Hyperlipidemia, unspecified
CPT/HCPCS: 49083; 71010; 74176; 80048; 80053; 80069; 82042; 82550; 82553; 82962; 83690; 83735; 83880; 84155; 84157; 84484; 85025; 85610; 85730; 87070; 87205; 88112; 88305; 89051; 93005; 93306; 93970; 94640; 96374; 96375; 99285; A9270-GY; G0257; J1170; J2405; P9047

== ENCOUNTER 2016-07-16 13:05 | Emergency (ER) | payer MEDICARE, OTHER ==
[2016-07-16 11:38] LABS: BASOPHILS 0.4 %; BASOPHILS ABSOLUTE 0.03 10/3/uL (0.0-0.16); EOSINOPHILS 5.7 %; EOSINOPHILS ABSOLUTE 0.42 10/3/uL (0.0-0.53); ER CBC TAT 0 Hrs 07 Mins; IMMATURE GRANULOCYTES 0.1 %; IMMATURE GRANULOCYTES ABSOLUTE 0.01 10/3/uL (0.0-0.11); LYMPHOCYTES 15.9 %; LYMPHOCYTES ABSOLUTE 1.18 10/3/uL (0.67-4.30); MEAN CORPUS HGB CONC 34.2 g/dL (32.0-36.0); MEAN CORPUSCULAR HEMOGLOB 33.4 pg (26.0-34.0); MEAN CORPUSCULAR VOLUME 97.7 fL (80-100); MEAN PLATELET VOLUME 10.3 fL (9.2-13.0); MONOCYTES 6.7 %; NEUTROPHILS 71.2 %; NEUTROPHILS ABSOLUTE 5.28 10/3/uL (2.02-8.40); RED CELL COUNT 3.89 10/6/uL (4.7-6.1); WHITE BLOOD CELLS 7.4 10/3/uL (4.5-10.5)
[2016-07-16 11:40] LABS: MANUAL DIFF NO %; PLATELET COUNT 281 10/3/uL (150-400)
[2016-07-16 11:47] LABS: INTERNATIONAL NORMAL RATI 1.4 UNITS (-); PARTIAL THROMBO TIME 31.5 SEC (22.5-37.2); PROTIME (NOT ORD) 16.6 SEC (12.0-14.5)
[2016-07-16 11:51] LABS: A/G RATIO 0.7 (0.7-1.9); ALKALINE PHOSPHATASE 412 U/L (45-117); BUN (BLOOD UREA NITROGEN) 27 MG/DL (6-23); CALCIUM, SERUM 8.2 MG/DL (8.5-10.4); CHLORIDE, SERUM 95 MMOL/L (96-112); CO2 (CARBON DIOXIDE) 35 MMOL/L (24-34); CREATININE 5.15 MG/DL (0.70-1.30); GFR AFRICAN AMERICAN 14 ML/MIN (>=60); GFR NON AFRICAN AMERICAN 12 ML/MIN (>=60); GLOBULIN 4.5 G/DL (2.5-4.1); GLUCOSE, SERUM 110 MG/DL (60-99); POTASSIUM, SERUM 3.3 MMOL/L (3.5-5.3); SGOT(AST) 40 U/L (5-40); SGPT(ALT) 36 U/L (5-65); SODIUM, SERUM 137 MMOL/L (135-148); TOTAL BILIRUBIN 4.7 MG/DL (0-1.2); TOTAL PROTEIN 7.5 G/DL (6.0-8.5)
[2016-07-16 11:52] LABS: LACTATE 2.1 MMOL/L (0.3-2.4)
[~2016-07-16 13:05] MED LIST changes: +COREG6 PO; +L80 PO; +ZESTRIL5 MG PO
[2016-08-02] MEDS ORDERED: VENTOLIN HFA INH (04:50)
[2016-08-02] MEDS ORDERED: CORDARONE PO (04:51)
[2016-08-02] MEDS ORDERED: PHOSLO PO (04:52)
[2016-08-02] MEDS ORDERED: BREO ELLIPTA 21 EACH INH (04:52)
[2016-08-02] MEDS ORDERED: L80 PO (04:54)
[2016-08-02] MEDS ORDERED: ZESTRIL5 MG PO (04:56)
[2016-08-02] MEDS ORDERED: TOPXL25 PO (04:59)
[2016-08-02] MEDS ORDERED: *UNABLE3 (05:00)
[2016-08-02] MEDS ORDERED: COUMADIN10 MG PO (05:00)
[2016-09-03] MEDS ORDERED: DORYX100 MG PO (07:47)
[2016-09-03] MEDS ORDERED: T PO (07:47)
[2016-09-03] MEDS ORDERED: ZYVOXPO PO (07:48)
[2016-09-04] MEDS ORDERED: COUMADIN10 MG PO (15:31)
[2016-10-18] MEDS ORDERED: BREO ELLIPTA 21 EACH INH (12:25)
[2016-10-18] MEDS ORDERED: VENTOLIN HFA INH (12:25)
[2016-10-18] MEDS ORDERED: COREG12 PO (12:26)
[2016-10-18] MEDS ORDERED: ZESTRIL5 MG PO (12:26)
[2016-10-18] MEDS ORDERED: CORDARONE PO (12:26)
[2016-10-18] MEDS ORDERED: COUMADIN10 MG PO (12:27)
[2016-10-18] MEDS ORDERED: NORV5 PO (12:27)
[2016-10-18] MEDS ORDERED: FLEX PO (12:28)
[2016-10-18] MEDS ORDERED: P10 (12:28)
[2016-10-23] MEDS ORDERED: NORCO1 TA1 PO (12:39)
[2016-10-23] MEDS ORDERED: PHOSLO PO (12:41)
[2016-11-16] MEDS ORDERED: *UNABLE3 (02:38)
[2016-11-16] MEDS ORDERED: NEUR300 PO (12:53)
[2016-11-16] MEDS ORDERED: COREG12 PO (12:54)
[2016-11-16] MEDS ORDERED: PHOSLO PO (12:54)
[2016-11-16] MEDS ORDERED: COUMADIN6 MG PO (12:54)
[2016-11-16] MEDS ORDERED: NORCO1 TA1 PO (12:55)
[2016-11-16] MEDS ORDERED: FLEX PO (12:55)
[2016-11-16] MEDS ORDERED: P10 PO (12:55)
[2016-11-25] MEDS ORDERED: SEVE800T PO (15:02)
[2016-11-25] MEDS ORDERED: NORCO1 TA1 PO (15:04)
[2016-11-25] MEDS ORDERED: SILVADENE1 % TOP (17:14)
[2016-12-08] MEDS ORDERED: HALF81 PO (15:25)
[2016-12-08] MEDS ORDERED: LIPITOR40 PO (15:25)
[2016-12-08] MEDS ORDERED: COREG12 PO (15:26)
[2016-12-08] MEDS ORDERED: C2 PO (15:27)
[2016-12-08] MEDS ORDERED: NORCO1 TA1 PO (15:29)
== END 2016-07-16 14:43 | disposition home or self-care (01) ==
LOC: ER 13:05
PROVIDERS: Nurse Practitioner
DX: L02.416 Cutaneous abscess of left lower limb (principal); L03.116 Cellulitis of left lower limb; I13.10 Hypertensive heart and chronic kidney disease without heart failure, with stage 1 through stage 4 chronic kidney disease, or unspecified chronic kidney disease; N18.9 Chronic kidney disease, unspecified; I50.9 Heart failure, unspecified; Z79.01 Long term (current) use of anticoagulants; Z79.899 Other long term (current) drug therapy
CPT/HCPCS: 73590-LT; 80053; 83605; 85025; 85610; 85730; 87040; 87070; 87077; 87186; 87205; 96374; 96375; 99284; A9270-GY; J1170; J1200; J2405

== ENCOUNTER 2016-07-18 12:37 | Observation (INO) | payer MEDICARE, OTHER ==
--- NOTE | ~2016-07-18 | HP ---
History And Physical [place] [address] [facility] [place]. [address] NAME: WENDY GALAVIZ : 61 STATUS : ADM IN [facility]#: [id number] AGE: 51 ADM/REG DATE : 07/18/16 MR#: [id number] REPORT SERV DATE: 07/18/16 DICTATED BY: CARLO LOWE DATE: 07/18/16 REPORT STATUS : Draft TRANSCRIBED BY: MODTiana DATE: 07/18/16 DATE OF ADMISSION: 07/18/2016 CHIEF COMPLAINT: Left arellano wound. HISTORY OF PRESENT ILLNESS: Mr. Galaviz is a very pleasant, 51-year-old male with a long-standing history of ESRD dialyzing at the [facility] on Thursday, Thursday, Thursday through a left forearm AV fistula. He has had recent hospitalizations this year for multiple reasons. He has had cardioversion in April and June 2016. Cardiac cath in April showed no significant coronary disease, and he in fact had a cardiac arrest during a REY. He has also had a previous right VATS for pleural effusion. He has had a recent 2.9 L paracentesis on July 08 for recurrent cardiac ascites. He has severe tricuspid and mitral regurgitation for which he is not a surgical candidate for repair of his vessels. He developed a wound on his left arellano within the last several days. He came to the emergency room on Thursday, July 16. At that time, blood cultures were negative but wound culture grew out MRSA which was sensitive to Zyvox. He does have a vancomycin allergy and has been on Zyvox 600 mg p.o. b.i.d. for the last two days. He was referred to Wound Care, but apparently they do not take urgent referrals. He therefore returned to the emergency room today for further evaluation and treatment of the wound. X-ray on July 16 showed no obvious bone changes consistent with osteomyelitis. Today, his white count 6.4, he is afebrile at 97.7. PAST MEDICAL HISTORY: 1. ESRD [facility] left FA AVF. 2. Hypertension. 3. Cardiac ascites with recurrent paracentesis. 4. History of right VATS. 5. Atrial fibrillation with RVR, on chronic Coumadin but apparently not taking with INR 1.2. 6. Nonobstructive coronary disease by catheterization in April 2016 with arrest during REY. 7. Cardioversion in April and June 2006. 8. Echo on July 05 EF 35%, RVSP 42, severe TR and severe MR. MEDICATIONS: Albuterol inhaler, amiodarone, PhosLo, Coreg, Catapres patch, Breo Ellipta, Lasix 80 mg on non dialysis days, Zyvox 600 mg b.i.d. since the 16 of July, lisinopril 5 mg daily, metoprolol 25 mg daily, and warfarin 10 mg at bedtime, the patient not taking. FAMILY HISTORY: Unchanged from previous dictations. SOCIAL HISTORY: Unchanged from previous dictations. REVIEW OF SYSTEMS: Unchanged from previous dictations. History And Physical [address] [address] NAME: WENDY GALAVIZ : 61 STATUS : ADM IN [facility]#: [id number] AGE: 51 ADM/REG DATE : 07/18/16 MR#: [id number] REPORT SERV DATE: 07/18/16 DICTATED BY: CARLO LOWE DATE: 07/18/16 REPORT STATUS : Draft TRANSCRIBED BY: BONNIE DATE: 07/18/16 PHYSICAL EXAMINATION: VITAL SIGNS: Temperature 97.7, pulse 81, respirations 18, blood pressure 133/86, 94% saturation on room air. GENERAL: Pleasant middle-aged male, awake, alert, oriented, and cooperative with the exam. Good historian. HEENT: Sclerae without icterus. Conjunctivae not injected. LUNGS: No dyspnea. HEART: Regular rate and rhythm. Audible S4, 3/6 systolic murmur. ABDOMEN: Soft, nontender, nondistended. No significant ascites today. EXTREMITIES: Without edema. SKIN: Exam shows a 1 x 1 cm left arellano wound that is mildly tender to palpation with mild exudate. No erythema or warmth present. There is packing in place from the ER two days ago. Left forearm fistula has palpable thrill, audible bruit. NEURO: Grossly nonfocal. LABORATORY DATA: Sodium 138, potassium 3.4, BUN 26, creatinine 5.2, calcium 8.2. Bilirubin 3.7, albumin 3.0, INR 1.2. White count 6.4, hemoglobin 12.8, and platelets 272,000. ASSESSMENT/PLAN: Mr. Galaviz has end-stage renal disease on maintenance dialysis, hypertension, cardiac ascites, atrial fibrillation, chronic Coumadin, history of pleural effusion, hypoalbuminemia, cardiomyopathy, and pulmonary hypertension, presents with a left arellano wound. He is allergic to vancomycin. Continue Zyvox. He is afebrile and has a normal white count. We will cancel the ID consult. Stop the IV fluids. Ask Wound Care to evaluate as he cannot get into the office in the near future, and it is the weekend. Next dialysis on Thursday. 23 hour observation, hopefully can discharge this weekend. LIONEL/BONNIE Carlo Lowe M.D. / [id number] CC: Carlo Lowe M.D.
--- NOTE | ~2016-07-18 | DS ---
Discharge Summary [facility] [address] [facility] [place]. [address] NAME: WENDY ENNIS : 61 STATUS : DIS Kelly PAT#: [id number] AGE: 51 ADM/REG DATE : 07/18/16 MR#: [id number] REPORT SERV DATE: 07/31/16 DICTATED BY: CARLO LOWE DATE: 07/30/16 REPORT STATUS : Draft TRANSCRIBED BY: BONNIE DATE: 07/30/16 Data Collection from hospitalization DISCHARGE DIAGNOSES: 1. End-stage renal disease. 2. Methicillin-resistant Staphylococcus aureus of left arellano wound. 3. Hypertension. 4. Atrial fibrillation-on Coumadin, status post direct current cardioversion. 5. History of right VATS. 6. Cardiac ascites. 7. Severe valvular disease-not a surgical candidate. CONSULTATION: Dr. Christophe Teixeira. PROCEDURES PERFORMED: None. MEDICATIONS: Ventolin two puffs via inhaler as needed; Cordarone 200 mg daily; PhosLo 2001 mg with meals; Breo Ellipta one puff via inhaler daily; Lasix 80 mg on Thursday, Thursday, Thursday, and ; Zyvox as instructed; Zestril 5 mg daily; Toprol-XL 25 mg daily; Coumadin 10 mg every evening. He was instructed not to continue clonidine or carvedilol. CONDITION AT DISCHARGE: Stable. DISPOSITION: The patient was discharged home on a renal diet with activities as instructed. [facility]. He would follow up for hemodialysis on Mondays, Wednesdays, and Fridays as instructed. HOSPITAL COURSE: This is a 51-year-old man, who has a longstanding history of end-stage renal disease. He dialyzes on Mondays, Wednesdays, and Fridays through a left forearm AV fistula. He had had recent hospitalizations this year for multiple reasons. He had undergone a cardioversion in April and June 2016. Cardiac catheterization in April showed no significant coronary artery disease. In fact, he had a cardiac arrest during transesophageal echocardiography. He also had previous right VATS for pleural effusion. He had a recent 2.9 L paracentesis on 07/08/2016 for recurrent cardiac ascites. He had severe tricuspid and mitral regurgitation for which he was not a surgical candidate for repair of his vessels. He had developed a wound on his left arellano over the past several days prior to admission. He came to the emergency room on 07/16/2016 and at that time, his blood cultures were negative. Wound culture grew out MRSA, which was sensitive to Zyvox. He does have an allergy to vancomycin and had been on Zyvox for the past two days. He [facility], but apparently they do not take urgent referrals, he therefore returned to the emergency room at that time and was admitted to the hospital for further evaluation and treatment. Upon admission, he was afebrile. He had had x-rays on 07/16/2016, which had shown no obvious bone changes consistent with osteomyelitis. Zyvox was continued. He was afebrile. His white count was normal. IV fluids were going to be stopped. The following day, he had no new complaints. Creatinine level was 6.35. He was seen by Dr. Christophe Teixeira. The patient has a wound on his left arellano. His Coumadin was continued. His INR level was 1.3. Discharge Summary [address] [address] NAME: WENDY ENNIS : 61 STATUS : DIS Kelly PAT#: [id number] AGE: 51 ADM/REG DATE : 07/18/16 MR#: [id number] REPORT SERV DATE: 07/31/16 DICTATED BY: CARLO LOWE DATE: 07/30/16 REPORT STATUS : Draft TRANSCRIBED BY: BONNIE DATE: 07/30/16 Supportive care was going to be continued. On the , O2 saturation was 96% on room air. His blood cultures were negative. He had no new complaints. He had no dyspnea. INR level was 1.4. Discharge planning was performed. His Coumadin dose was increased. On 07/21/2016, hemodialysis therapy was performed. He was going to [facility] up in [facility]. Discharge instructions were given. Due to his improved and stable condition, he was discharged home with the above-stated instructions. Information collected by: Sherley Limon I submit the above information as my discharge summary. RUDOLPH/BONNIE Carlo Lowe M.D. / [id number] CC: Meenu Bird Jr., M.D.
[2016-07-18 12:39] LABS: BASOPHILS 0.8 %; BASOPHILS ABSOLUTE 0.05 10/3/uL (0.0-0.16); EOSINOPHILS 8.3 %; EOSINOPHILS ABSOLUTE 0.53 10/3/uL (0.0-0.53); ER CBC TAT 0 Hrs 08 Mins; HEMATOCRIT 37.2 % (40.0-51.0); HEMOGLOBIN 12.8 g/dL (13.6-17.8); IMMATURE GRANULOCYTES 0.3 %; IMMATURE GRANULOCYTES ABSOLUTE 0.02 10/3/uL (0.0-0.11); LYMPHOCYTES 18.9 %; LYMPHOCYTES ABSOLUTE 1.21 10/3/uL (0.67-4.30); MEAN CORPUS HGB CONC 34.4 g/dL (32.0-36.0); MEAN CORPUSCULAR HEMOGLOB 33.2 pg (26.0-34.0); MEAN CORPUSCULAR VOLUME 96.4 fL (80-100); MEAN PLATELET VOLUME 9.8 fL (9.2-13.0); MONOCYTES 8.5 %; MONOCYTES ABSOLUTE 0.54 10/3/uL (0.21-1.20); NEUTROPHILS 63.2 %; NEUTROPHILS ABSOLUTE 4.04 10/3/uL (2.02-8.40); PLATELET COUNT 272 10/3/uL (150-400); RBC DISTRIBUTION WIDTH 18.5 % (12.0-16.0); RED CELL COUNT 3.86 10/6/uL (4.7-6.1); WHITE BLOOD CELLS 6.4 10/3/uL (4.5-10.5)
[2016-07-18 12:40] LABS: MANUAL DIFF NO %
[2016-07-18 12:46] LABS: INTERNATIONAL NORMAL RATI 1.2 UNITS (-); PARTIAL THROMBO TIME 27.7 SEC (22.5-37.2); PROTIME (NOT ORD) 15.4 SEC (12.0-14.5)
[2016-07-18] MEDS ORDERED: BREO ELLIPTA 21 EACH INH (12:56)
[2016-07-18 12:57] LABS: A/G RATIO 0.7 (0.7-1.9); BUN (BLOOD UREA NITROGEN) 26 MG/DL (6-23); CALCIUM, SERUM 8.2 MG/DL (8.5-10.4); CHLORIDE, SERUM 94 MMOL/L (96-112); CO2 (CARBON DIOXIDE) 32 MMOL/L (24-34); CREATININE 5.16 MG/DL (0.70-1.30); GFR AFRICAN AMERICAN 14 ML/MIN (>=60); GFR NON AFRICAN AMERICAN 12 ML/MIN (>=60); GLOBULIN 4.1 G/DL (2.5-4.1); POTASSIUM, SERUM 3.4 MMOL/L (3.5-5.3); SGOT(AST) 36 U/L (5-40); SGPT(ALT) 33 U/L (5-65); SODIUM, SERUM 138 MMOL/L (135-148); TOTAL PROTEIN 7.1 G/DL (6.0-8.5)
[2016-07-18] MEDS ORDERED: VENTOLIN HFA INH (12:57)
[2016-07-18] MEDS ORDERED: CATAPRES2 TOP (12:57)
[2016-07-18 12:58] LABS: GLUCOSE, SERUM 76 MG/DL (60-99); TOTAL BILIRUBIN 3.7 MG/DL (0-1.2)
[2016-07-18] MEDS ORDERED: CORDARONE PO (12:58)
[2016-07-18] MEDS ORDERED: COREG6 PO (12:58)
[2016-07-18] MEDS ORDERED: ZESTRIL5 MG PO (12:58)
[2016-07-18] MEDS ORDERED: TOPXL25 PO (12:58)
[2016-07-18 12:59] LABS: ALKALINE PHOSPHATASE 441 U/L (45-117)
[2016-07-18] MEDS ORDERED: COUMADIN10 MG PO (12:59)
[2016-07-18] MEDS ORDERED: L80 PO (12:59)
[2016-07-18] MEDS ORDERED: PHOSLO PO (12:59)
[2016-07-18] MEDS ORDERED: ZYVOXPO PO (13:09)
[2016-07-19 04:42] LABS: BASOPHILS 0.7 %; BASOPHILS ABSOLUTE 0.05 10/3/uL (0.0-0.16); EOSINOPHILS ABSOLUTE 0.42 10/3/uL (0.0-0.53); HEMATOCRIT 36.6 % (40.0-51.0); HEMOGLOBIN 12.4 g/dL (13.6-17.8); IMMATURE GRANULOCYTES 0.1 %; IMMATURE GRANULOCYTES ABSOLUTE 0.01 10/3/uL (0.0-0.11); LYMPHOCYTES 17.6 %; LYMPHOCYTES ABSOLUTE 1.23 10/3/uL (0.67-4.30); MEAN CORPUS HGB CONC 33.9 g/dL (32.0-36.0); MEAN CORPUSCULAR HEMOGLOB 33.2 pg (26.0-34.0); MEAN CORPUSCULAR VOLUME 98.1 fL (80-100); MEAN PLATELET VOLUME 9.9 fL (9.2-13.0); MONOCYTES 9.2 %; MONOCYTES ABSOLUTE 0.64 10/3/uL (0.21-1.20); NEUTROPHILS 66.4 %; NEUTROPHILS ABSOLUTE 4.64 10/3/uL (2.02-8.40); PLATELET COUNT 280 10/3/uL (150-400); RBC DISTRIBUTION WIDTH 18.6 % (12.0-16.0); RED CELL COUNT 3.73 10/6/uL (4.7-6.1)
[2016-07-19 04:43] LABS: MANUAL DIFF NO %
[2016-07-19 04:49] LABS: INTERNATIONAL NORMAL RATI 1.3 UNITS (-); PROTIME (NOT ORD) 15.6 SEC (12.0-14.5)
[2016-07-19 04:57] LABS: ALBUMIN 2.7 G/DL (3.5-5.0); CALCIUM, SERUM 8.9 MG/DL (8.5-10.4); CHLORIDE, SERUM 96 MMOL/L (96-112); CO2 (CARBON DIOXIDE) 28 MMOL/L (24-34); POTASSIUM, SERUM 3.5 MMOL/L (3.5-5.3); SODIUM, SERUM 138 MMOL/L (135-148)
[2016-07-19 05:15] LABS: BUN (BLOOD UREA NITROGEN) 33 MG/DL (6-23); CREATININE 6.35 MG/DL (0.70-1.30); GFR AFRICAN AMERICAN 11 ML/MIN (>=60); GFR NON AFRICAN AMERICAN 9 ML/MIN (>=60); GLUCOSE, SERUM 114 MG/DL (60-99); PHOSPHORUS, SERUM 6.8 MG/DL (2.5-4.5)
[2016-07-20 05:24] LABS: INTERNATIONAL NORMAL RATI 1.3 UNITS (-); PROTIME (NOT ORD) 16.2 SEC (12.0-14.5)
[2016-07-21 06:08] LABS: BASOPHILS 0.7 %; BASOPHILS ABSOLUTE 0.05 10/3/uL (0.0-0.16); EOSINOPHILS 5.2 %; EOSINOPHILS ABSOLUTE 0.39 10/3/uL (0.0-0.53); HEMATOCRIT 34.6 % (40.0-51.0); HEMOGLOBIN 11.9 g/dL (13.6-17.8); IMMATURE GRANULOCYTES 0.3 %; IMMATURE GRANULOCYTES ABSOLUTE 0.02 10/3/uL (0.0-0.11); LYMPHOCYTES 19.2 %; LYMPHOCYTES ABSOLUTE 1.43 10/3/uL (0.67-4.30); MEAN CORPUS HGB CONC 34.4 g/dL (32.0-36.0); MEAN CORPUSCULAR HEMOGLOB 33.4 pg (26.0-34.0); MEAN CORPUSCULAR VOLUME 97.2 fL (80-100); MONOCYTES 8.7 %; MONOCYTES ABSOLUTE 0.65 10/3/uL (0.21-1.20); NEUTROPHILS 65.9 %; PLATELET COUNT 229 10/3/uL (150-400); RBC DISTRIBUTION WIDTH 18.3 % (12.0-16.0); RED CELL COUNT 3.56 10/6/uL (4.7-6.1); WHITE BLOOD CELLS 7.4 10/3/uL (4.5-10.5)
[2016-07-21 06:09] LABS: MANUAL DIFF NO %
[2016-07-21 06:10] LABS: INTERNATIONAL NORMAL RATI 1.7 UNITS (-)
[2016-07-21 06:13] LABS: PROTIME (NOT ORD) 19.9 SEC (12.0-14.5)
[2016-07-21 06:22] LABS: ALBUMIN 2.7 G/DL (3.5-5.0); BUN (BLOOD UREA NITROGEN) 58 MG/DL (6-23); CHLORIDE, SERUM 95 MMOL/L (96-112); CO2 (CARBON DIOXIDE) 25 MMOL/L (24-34); GFR AFRICAN AMERICAN 7 ML/MIN (>=60); GFR NON AFRICAN AMERICAN 6 ML/MIN (>=60); GLUCOSE, SERUM 89 MG/DL (60-99); PHOSPHORUS, SERUM 8.2 MG/DL (2.5-4.5); POTASSIUM, SERUM 4.5 MMOL/L (3.5-5.3); SODIUM, SERUM 135 MMOL/L (135-148)
[2016-08-02] MEDS ORDERED: VENTOLIN HFA INH (04:50)
[2016-08-02] MEDS ORDERED: CORDARONE PO (04:51)
[2016-08-02] MEDS ORDERED: PHOSLO PO (04:52)
[2016-08-02] MEDS ORDERED: BREO ELLIPTA 21 EACH INH (04:52)
[2016-08-02] MEDS ORDERED: L80 PO (04:54)
[2016-08-02] MEDS ORDERED: ZESTRIL5 MG PO (04:56)
[2016-08-02] MEDS ORDERED: TOPXL25 PO (04:59)
[2016-08-02] MEDS ORDERED: COUMADIN10 MG PO (05:00)
[2016-08-02] MEDS ORDERED: *UNABLE3 (05:00)
[2016-09-03] MEDS ORDERED: T PO (07:47)
[2016-09-03] MEDS ORDERED: DORYX100 MG PO (07:47)
[2016-09-03] MEDS ORDERED: ZYVOXPO PO (07:48)
[2016-09-04] MEDS ORDERED: COUMADIN10 MG PO (15:31)
[2016-10-18] MEDS ORDERED: VENTOLIN HFA INH (12:25)
[2016-10-18] MEDS ORDERED: BREO ELLIPTA 21 EACH INH (12:25)
[2016-10-18] MEDS ORDERED: COREG12 PO (12:26)
[2016-10-18] MEDS ORDERED: ZESTRIL5 MG PO (12:26)
[2016-10-18] MEDS ORDERED: CORDARONE PO (12:26)
[2016-10-18] MEDS ORDERED: COUMADIN10 MG PO (12:27)
[2016-10-18] MEDS ORDERED: NORV5 PO (12:27)
[2016-10-18] MEDS ORDERED: FLEX PO (12:28)
[2016-10-18] MEDS ORDERED: P10 (12:28)
[2016-10-23] MEDS ORDERED: NORCO1 TA1 PO (12:39)
[2016-10-23] MEDS ORDERED: PHOSLO PO (12:41)
[2016-11-16] MEDS ORDERED: *UNABLE3 (02:38)
[2016-11-16] MEDS ORDERED: NEUR300 PO (12:53)
[2016-11-16] MEDS ORDERED: PHOSLO PO (12:54)
[2016-11-16] MEDS ORDERED: COREG12 PO (12:54)
[2016-11-16] MEDS ORDERED: COUMADIN6 MG PO (12:54)
[2016-11-16] MEDS ORDERED: NORCO1 TA1 PO (12:55)
[2016-11-16] MEDS ORDERED: FLEX PO (12:55)
[2016-11-16] MEDS ORDERED: P10 PO (12:55)
[2016-11-25] MEDS ORDERED: SEVE800T PO (15:02)
[2016-11-25] MEDS ORDERED: NORCO1 TA1 PO (15:04)
[2016-11-25] MEDS ORDERED: SILVADENE1 % TOP (17:14)
[2016-12-08] MEDS ORDERED: HALF81 PO (15:25)
[2016-12-08] MEDS ORDERED: LIPITOR40 PO (15:25)
[2016-12-08] MEDS ORDERED: COREG12 PO (15:26)
[2016-12-08] MEDS ORDERED: C2 PO (15:27)
[2016-12-08] MEDS ORDERED: NORCO1 TA1 PO (15:29)
== END 2016-07-21 14:03 | disposition home or self-care (01) ==
LOC: ER 12:37 → 6NO 14:18
PROVIDERS: Emergency Medicine; Internal Medicine Nephrology
DX: I13.2 Hypertensive heart and chronic kidney disease with heart failure and with stage 5 chronic kidney disease, or end stage renal disease (principal); N18.6 End stage renal disease; I50.9 Heart failure, unspecified; J44.9 Chronic obstructive pulmonary disease, unspecified; K21.9 Gastro-esophageal reflux disease without esophagitis; I25.10 Atherosclerotic heart disease of native coronary artery without angina pectoris; Z88.0 Allergy status to penicillin; Z88.8 Allergy status to other drugs, medicaments and biological substances; Z90.49 Acquired absence of other specified parts of digestive tract; Z98.890 Other specified postprocedural states; Z79.899 Other long term (current) drug therapy; Z91.041 Radiographic dye allergy status; Z90.89 Acquired absence of other organs
CPT/HCPCS: 80053; 80069; 83735; 85025; 85610; 85730; 87040; 94640; 96372; 96374; 96375; 96376; 99284; A9270-GY; G0257; G0378; J1170; J2405

== ENCOUNTER 2016-08-12 15:13 | Emergency (ER) | payer MEDICARE, OTHER ==
[~2016-08-12 15:13] MED LIST changes: +*UNABLE3; +ZYVOXPO PO
[2016-09-03] MEDS ORDERED: DORYX100 MG PO (07:47)
[2016-09-03] MEDS ORDERED: T PO (07:47)
[2016-09-03] MEDS ORDERED: ZYVOXPO PO (07:48)
[2016-09-04] MEDS ORDERED: COUMADIN10 MG PO (15:31)
[2016-10-18] MEDS ORDERED: VENTOLIN HFA INH (12:25)
[2016-10-18] MEDS ORDERED: BREO ELLIPTA 21 EACH INH (12:25)
[2016-10-18] MEDS ORDERED: COREG12 PO (12:26)
[2016-10-18] MEDS ORDERED: ZESTRIL5 MG PO (12:26)
[2016-10-18] MEDS ORDERED: CORDARONE PO (12:26)
[2016-10-18] MEDS ORDERED: COUMADIN10 MG PO (12:27)
[2016-10-18] MEDS ORDERED: NORV5 PO (12:27)
[2016-10-18] MEDS ORDERED: FLEX PO (12:28)
[2016-10-18] MEDS ORDERED: P10 (12:28)
[2016-10-23] MEDS ORDERED: NORCO1 TA1 PO (12:39)
[2016-10-23] MEDS ORDERED: PHOSLO PO (12:41)
[2016-11-16] MEDS ORDERED: *UNABLE3 (02:38)
[2016-11-16] MEDS ORDERED: NEUR300 PO (12:53)
[2016-11-16] MEDS ORDERED: COREG12 PO (12:54)
[2016-11-16] MEDS ORDERED: COUMADIN6 MG PO (12:54)
[2016-11-16] MEDS ORDERED: PHOSLO PO (12:54)
[2016-11-16] MEDS ORDERED: NORCO1 TA1 PO (12:55)
[2016-11-16] MEDS ORDERED: FLEX PO (12:55)
[2016-11-16] MEDS ORDERED: P10 PO (12:55)
[2016-11-25] MEDS ORDERED: SEVE800T PO (15:02)
[2016-11-25] MEDS ORDERED: NORCO1 TA1 PO (15:04)
[2016-11-25] MEDS ORDERED: SILVADENE1 % TOP (17:14)
[2016-12-08] MEDS ORDERED: LIPITOR40 PO (15:25)
[2016-12-08] MEDS ORDERED: HALF81 PO (15:25)
[2016-12-08] MEDS ORDERED: COREG12 PO (15:26)
[2016-12-08] MEDS ORDERED: C2 PO (15:27)
[2016-12-08] MEDS ORDERED: NORCO1 TA1 PO (15:29)
== END 2016-08-12 17:58 | disposition home or self-care (01) ==
LOC: ER 15:13
DX: L73.9 Follicular disorder, unspecified (principal); I10 Essential (primary) hypertension; I48.91 Unspecified atrial fibrillation; K21.9 Gastro-esophageal reflux disease without esophagitis; Z88.0 Allergy status to penicillin; Z91.041 Radiographic dye allergy status; Z91.018 Allergy to other foods; Z91.013 Allergy to seafood; Z79.01 Long term (current) use of anticoagulants; Z79.899 Other long term (current) drug therapy
CPT/HCPCS: 99283; A9270-GY